=== PATIENT | female | born 1965 | race Caucasian/White ===

== ENCOUNTER 2017-03-31 16:13 | Emergency (ER) | payer OTHER ==
[2017-03-31] MEDS ORDERED: BACIGUENT PACKET TP ONE (16:44)
[2017-03-31] MEDS ORDERED: TYLENOL 325 MG PO ONE (16:44)
[2017-03-31] MEDS ORDERED: TYLENOL 325 MG ONE (16:50)
[2017-03-31] MEDS ORDERED: BACIGUENT PACKET ONE (16:50)
--- NOTE | 2017-03-31 16:51 | ERPHSYRPT ---
- History of Present Illness Time Seen by Provider: 03/31/17 16:37 Source: patient Exam Limitations: no limitations Patient Subjective Stated Complaint: patient states she is allergic to bee sting and something shes not sure what stung her today on her left hand and it hurts. Triage Nursing Assessment: pt is alert and orientedx3, lung sounds clear, pulses equal bialteral radius, cap refill immediate on left hand. unable to locate sting site, no swelling noted , skin clean dry and intact. patient gait is stead and ambulate by self without assistance. edema noted to bilateral lower extremities. Physician History: 51-year-old white female who states she is alert he would to bee stings states she was stung by unknown insect on her left fourth finger while working in the garden 30 minutes prior to arrival patient states that she took Benadryl. She is not having any shortness of breath no wheezing she is not swelling she does state that she has pain in her left fourth finger and left hand. Past medical history includes high blood pressure, asthma, diabetes, arthritis, fibromyalgia, osteoporosis, GERD, gallbladder disease Past surgical history includes cardiac catheter cholecystectomy tubal, knee surgery, tonsillectomy and adenoidectomy Timing/Duration: today Severity: mild Modifying Factors: Improves With: nothing Associated Symptoms: other (pain in left fourth finger and hand), No nausea, No vomiting, No abdominal pain, No shortness of breath, No heartburn, No diaphoresis, No cough, No chills, No chest pain, No fever, No headaches, No loss of appetite, No malaise, No rash, No syncope, No seizure, No weakness Allergies/Adverse Reactions: Sulfa (Sulfonamide Antibiotics) Allergy (Verified 09/11/14 20:41) nuclear dye Adverse Reaction (Intermediate, Uncoded 12/27/13 23:54) Nausea and Vomiting Home Medications: Aspirin 81 gm Chew [Baby Aspirin 81 mg Chew] 1 tab PO DAILY 09/12/14 [ History] Diphenhydramine HCl 25 mg [Benadryl 25 mg Capsule] 2 tablet PO HS [History] Ibuprofen 200 mg [Motrin 200 mg] 1 tab PO TID 09/12/14 [History] Simvastatin 1 tab PO DAILY 09/12/14 [History] Hx Tetanus, Diphtheria Vaccination/Date Given: Yes Hx Influenza Vaccination/Date Given: No Hx Pneumococcal Vaccination/Date Given: No Immunizations Up to Date: Yes - Review of Systems Constitutional: No Fever, No Chills Eyes: No Symptoms Ears, Nose, & Throat: No Symptoms Respiratory: No Cough, No Dyspnea Cardiac: No Chest Pain, No Edema, No Syncope Abdominal/Gastrointestinal: No Abdominal Pain, No Nausea, No Vomiting, No Diarrhea Genitourinary Symptoms: No Dysuria Musculoskeletal: Other (possible insect sting with pain left fourth finger and hand) Skin: No Rash Neurological: No Dizziness, No Focal Weakness, No Sensory Changes Psychological: No Symptoms Endocrine: No Symptoms All Other Systems: Reviewed and Negative - Past Medical History Pertinent Past Medical History: Yes Neurological History: No Pertinent History ENT History: Other Cardiac History: Hypertension Respiratory History: Asthma Endocrine Medical History: Diabetes Type II Musculoskeletal History: Arthritis, Fibromyalgia, Osteoporosis GI Medical History: GERD, Gallbladder Disease, Hemorrhoids History: No Pertinent History Psycho-Social History: No Pertinent History Female Reproductive Disorders: No Pertinent History Other Medical History: Freckle in eye,, possible CA - Past Surgical History Past Surgical History: Yes Neuro Surgical History: No Pertinent History Cardiac: Cardiac Catheterization Respiratory: No Pertinent History Gastrointestinal: Cholecystectomy Genitourinary: No Pertinent History Musculoskeletal: Other Female Surgical History: Tubal Ligation Other Surgical History: 3 surgeries on both knees, T&A - Social History Smoking Status: Never smoker Exposure to second hand smoke: No Drug Use: none Patient Lives Alone: Yes - Female History Hx Now: No - Nursing Vital Signs Nursing Vital Signs: Initial Vital Signs Temperature 98 F 03/31/17 16:13 Pulse Rate 77 03/31/17 16:13 Respiratory Rate 18 03/31/17 16:13 Blood Pressure 125/60 03/31/17 16:13 O2 Sat by Pulse Oximetry 98 03/31/17 16:13 Pain Scale Pain Intensity 8 - Physical Exam General Appearance: no apparent distress, alert Eye Exam: PERRL/EOMI, eyes nml inspection Ears, Nose, Throat Exam: normal ENT inspection, TMs normal, pharynx normal, moist mucous membranes Neck Exam: normal inspection, non-tender, supple, full range of motion Respiratory Exam: normal breath sounds, lungs clear, No respiratory distress Cardiovascular Exam: regular rate/rhythm, normal heart sounds, normal peripheral pulses Gastrointestinal/Abdomen Exam: soft, normal bowel sounds, No tenderness, No mass Back Exam: normal inspection, normal range of motion, No CVA tenderness, No vertebral tenderness Extremity Exam: normal inspection, normal range of motion, pelvis stable Neurologic Exam: alert, oriented x 3, cooperative, normal mood/affect, nml cerebellar function, nml station & gait, sensation nml, No motor deficits Skin Exam: other (small punctate area dorsal left fourth finger slightly erythematous no hives no swelling) Lymphatic Exam: No adenopathy SpO2 Interpretation: normal (98%) SpO2: 98 Oxygen Delivery: Room Air - Course Nursing assessment & vital signs reviewed: Yes Ordered Tests: Active Orders 24 hr Category Date Time Status Wound Care STAT Care 03/31/17 16:44 Active Medication Summary Discontinued Medications Generic Name Dose Route Start Last Admin Trade Name Freq PRN Reason Stop Dose Admin Acetaminophen 650 mg 03/31/17 16:44 Tylenol 325 Mg PO 03/31/17 16:45 STAT ONE Bacitracin 0.9 gm 03/31/17 16:44 Baciguent Packet TP 03/31/17 16:45 STAT ONE - Progress Progress: improved Progress Note: 03/31/17 16:47 51-year-old white female who states she is allergic to bee stings states she was stung by an unknown insect on her left fourth finger 30 minutes prior to arrival she has taken Benadryl she has no swelling no hives no shortness of breath she has a severely small punctate erythematous area on her left fourth finger. Will have nurse clean the area apply bacitracin Will give patient Tylenol here in the emergency room and write for 4 Franklin tablets. - Departure Time of Disposition: 16:48 Departure Disposition: Home Clinical Impression: Insect sting Qualifiers: Encounter type: sequela Injury intent: accidental or unintentional Qualified Code(s): T63.481S - Toxic effect of venom of other arthropod, accidental ( unintentional), sequela Condition: Fair Critical Care Time: No Referrals: REJI CONTRERAS MD [Primary Care Provider] - Additional Instructions: Return home. Benadryl 50 mg orally every 6 hours as needed for 2-3 days. Franklin 5/325 #4 one orally every 4-6 hours as needed for pain. Cool packs to area 24-48 hours. Follow-up with your family doctor or return if signs of infection or problems. Return for acute distress or for severe symptoms. Prescriptions: Hydrocodone Bit/Acetaminophen [Franklin 5/325Mg] 1 tab PO Q4-6HPRN PRN #4 tablet PRN Reason: Pain
[2017-03-31 17:19] VITALS: BP 112/47; PULSE 65; O2SAT 97
== END 2017-03-31 17:20 | disposition home or self-care (01) ==
LOC: ED 16:13
DX: T63.481A Toxic effect of venom of other arthropod, accidental (unintentional), initial encounter (principal)
CPT/HCPCS: 99283; A9270-GY

== ENCOUNTER 2017-04-20 17:38 | Observation (INO) | payer OTHER ==
[2017-04-20] MEDS ORDERED: BABY ASPIRIN 81 MG CHEW PO ONE (17:58)
[2017-04-20] MEDS ORDERED: NITRO-BID 2% UD PACKETS TOP ONE (17:58)
--- NOTE | 2017-04-20 18:02 | ERPHSYRPT ---
- History of Present Illness Time Seen by Provider: 04/20/17 17:51 Historian: patient Patient Subjective Stated Complaint: PT REPORTS CHEST PAIN FOR RIVAS 2 WKS- INTERMITTANT IN NATURE-STATES IT NEVER GOES AWAY BUT AT TIMES GETS WORSE-STATES SHE HAS PRODUCTIVE COUGH WITH LIGHT YELLOW SPUTUM-DENIES PAIN INCREASES WITH ACTIVITY Triage Nursing Assessment: PT PINK WARM ET [id number] NONLABORED-LUNGS DIMINISHED UPON ARRIVAL BUT PT ABLE TO SPEAK IN COMPLETE SENTENCES WITH EASE Physician History: CC: chest pain Hx: 51 y/o patient of Dr Do with hx of DM. She has some chest pains for two weeks, worse now feeling like heaviness with something sitting on her left chest. Some PIERCE. She came as the pain was worse. No hx of prior heart disease. Reports remote heart cath X 2 was ok. Mild cough. Some chills. No fever. No abd pain. Symptoms moderate but worse today. Severity of Pain-Max: moderate Severity of Pain-Current: moderate Nitro Today/Relief: no nitro taken today Aspirin Treatment Today: 81 mg x 4, provided by ED Allergies/Adverse Reactions: acetaminophen [From Percocet] Allergy (Intermediate, Verified 04/20/17 17:47) Blisters oxycodone [From Percocet] Allergy (Intermediate, Verified 04/20/17 17:47) Blisters sulfamethoxazole [From Bactrim] Allergy (Intermediate, Verified 04/20/17 17:47) Swelling trimethoprim [From Bactrim] Allergy (Intermediate, Verified 04/20/17 17:47) Swelling Sulfa (Sulfonamide Antibiotics) Allergy (Verified 04/20/17 17:47) Hives nuclear dye Adverse Reaction (Intermediate, Uncoded 04/20/17 17:47) Nausea and Vomiting Home Medications: Aspirin 81 gm Chew [Baby Aspirin 81 mg Chew] 1 tab PO DAILY 09/12/14 [ History] Simvastatin 1 tab PO DAILY 09/12/14 [History] Albuterol 2 mg/5 ml Syrup [Ventolin Syrup 2 mg/5 ml] 2 mg PO UD 04/20/17 [ History] Fenofibrate 160 mg PO DAILY 04/20/17 [History] Fluticasone/Salmeterol [Advair 250-50 Diskus] 2 puff IH UD 04/20/17 [History] Insulin Glargine,Hum.rec.anlog [Lisaaglmark [place] U-100] 74 unit SQ DAILY [History] Insulin Glulisine [Apidra] 120 unit SQ DAILY 04/20/17 [History] Hx Tetanus, Diphtheria Vaccination/Date Given: Yes Hx Influenza Vaccination/Date Given: No Hx Pneumococcal Vaccination/Date Given: No Immunizations Up to Date: Yes - Review of Systems Constitutional: Malaise, No Fever, No Chills Eyes: No Symptoms Ears, Nose, & Throat: No Symptoms Respiratory: Cough, Dyspnea on Exertion (PIERCE) Cardiac: Chest Pain, No Palpitations, No Syncope Abdominal/Gastrointestinal: No Abdominal Pain, No Nausea, No Vomiting Genitourinary Symptoms: Dysuria Skin: No Rash Neurological: No Headache All Other Systems: Reviewed and Negative - Past Medical History Pertinent Past Medical History: Yes Neurological History: No Pertinent History ENT History: Other Cardiac History: High Cholesterol, Hypertension Respiratory History: Asthma Endocrine Medical History: Diabetes Type II Musculoskeletal History: Arthritis, Fibromyalgia, Osteoporosis GI Medical History: GERD, Gallbladder Disease, Hemorrhoids History: No Pertinent History Psycho-Social History: No Pertinent History Female Reproductive Disorders: No Pertinent History Other Medical History: Retina freckle - Past Surgical History Past Surgical History: Yes Neuro Surgical History: No Pertinent History Cardiac: Cardiac Catheterization Respiratory: No Pertinent History Gastrointestinal: Cholecystectomy Genitourinary: No Pertinent History Musculoskeletal: Other Female Surgical History: Tubal Ligation Other Surgical History: 3 surgeries on both knees, T&A - Social History Smoking Status: Never smoker Exposure to second hand smoke: No Drug Use: none Patient Lives Alone: Yes - Female History Hx Now: No - Nursing Vital Signs Nursing Vital Signs: Initial Vital Signs Temperature 98.5 F 04/20/17 17:39 Pulse Rate 83 04/20/17 17:39 Respiratory Rate 20 04/20/17 17:39 Blood Pressure 131/66 04/20/17 17:39 O2 Sat by Pulse Oximetry 96 04/20/17 17:39 Pain Scale Pain Intensity 4 - Physical Exam General Appearance: alert, obese Eye Exam: PERRL/EOMI Ears, Nose, Throat Exam: normal ENT inspection Neck Exam: normal inspection, non-tender, supple Respiratory Exam: normal breath sounds Cardiovascular Exam: regular rate/rhythm, edema (trace legs symmetrical) Gastrointestinal/Abdomen Exam: soft, No tenderness, No distention Extremity Exam: normal inspection, normal range of motion Neurologic Exam: alert, oriented x 3, cooperative, sensation nml, No motor deficits Skin Exam: warm, dry, No rash SpO2 Interpretation: normal SpO2: 96 Oxygen Delivery: Room Air - Course Nursing assessment & vital signs reviewed: Yes EKG Interpreted by Me: RATE (68), Sinus Rhythm, NORMAL AXIS, NORMAL INTERVALS ( QTc 444), Q-wave (inferior), Non-specific ST Changes - Radiology Exams cxr X-ray Interpretation: Interpreted by me (CM, atelectasis, RLL infiltrate) Ordered Tests: Active Orders 24 hr Category Date Time Status Radiology Physician Assistant STAT Care 04/20/17 17:58 Active Clean Catch Urine Specimen STAT Care 04/20/17 18:03 Active EKG-ER Only STAT Care 04/20/17 17:58 Active IV Insertion STAT Care 04/20/17 17:58 Active Pulse Oximetry (ED) STAT Care 04/20/17 17:58 Active CHEST 1 VIEW (PORTABLE) Stat Exams 04/20/17 17:58 Taken CBC W DIFF Stat Lab 04/20/17 17:55 Completed CMP Stat Lab 04/20/17 17:55 Completed CULTURE,URINE Stat Lab 04/20/17 18:45 Received TROPONIN Q3H Lab 04/20/17 17:55 Completed TROPONIN Q3H Lab 04/20/17 21:00 Ordered TROPONIN Q3H Lab 04/21/17 00:00 Ordered TROPONIN Q3H Lab 04/21/17 03:00 Ordered TROPONIN Q3H Lab 04/21/17 06:00 Ordered UA W/ MICROSCOPIC Stat Lab 04/20/17 18:45 Completed Medication Summary Discontinued Medications Generic Name Dose Route Start Last Admin Trade Name Freq PRN Reason Stop Dose Admin Aspirin 324 mg 04/20/17 17:58 04/20/17 18:30 Baby Aspirin 81 Mg Chew PO 04/20/17 17:59 324 mg STAT ONE Administration Aspirin Confirm 04/20/17 18:04 Baby Aspirin 81 Mg Chew Administered 04/20/17 18:05 Dose 243 mg .ROUTE .STK-MED ONE Aspirin Confirm 04/20/17 18:34 Baby Aspirin 81 Mg Chew Administered 04/20/17 18:35 Dose 81 mg .ROUTE .STK-MED ONE Nitroglycerin 1 gm 04/20/17 17:58 04/20/17 18:30 Nitro-Bid 2% Ud Packets TOP 04/20/17 17:59 1 gm STAT ONE Administration Nitroglycerin Confirm 04/20/17 18:04 Nitro-Bid 2% Ud Packets Administered 04/20/17 18:05 Dose 1 gm .ROUTE .STK-MED ONE Lab/Rad Data: Laboratory Result Diagrams 04/20/17 17:55 04/20/17 17:55 Laboratory Results 04/20/17 04/20/17 04/20/17 Range/Units 18:45 17:55 17:55 WBC (4.0-10.5) K/mm3 RBC (4.1-5.4) M/mm3 Hgb (12.0-16.0) gm/dl Hct (35-47) % MCV (78-100) fl MCH (26-32) pg MCHC (32-36) g/dl RDW (11.5-14.0) % Plt Count (150-450) K/mm3 MPV (6-9.5) fl Gran % (36.0-66.0) % Lymphocytes % (24.0-44.0) % Monocytes % (0.0-12.0) % Eosinophils % (0.00-5.0) % Basophils % (0.0-0.4) % Basophils # (0-0.4) Sodium 141 (136-145) mEq/L Potassium 4.1 (3.5-5.1) mEq/L Chloride 105 (98-107) mEq/L Carbon Dioxide 24.9 (21-32) mEq/L Anion Gap 15.3 H (5-15) MEQ/L BUN 8 L (9-20) mg/dL Creatinine 0.92 (0.55-1.30) mg/dl Estimated GFR > 60 ML/MIN Glucose 260 H (70-110) MG/DL Calcium 8.9 (8.5-10.1) mg/dL Total Bilirubin 0.30 (0.2-1.0) mg/dL AST 16 (15-37) U/L ALT 31 (12-78) U/L Alkaline Phosphatase 122 H (46-116) U/L Troponin I < 0.017 (0.000-0.056) ng/ml Serum Total Protein 7.3 (6.4-8.2) gm/dL Albumin 3.4 (3.4-5.0) g/dL Ur Collection Type CLEAN CATCH Urine Color YELLOW (YELLOW) Urine Appearance CLOUDY (CLEAR) Urine pH 5.5 (5-6) Ur Specific [place] 1.020 (1.005-1.025) Urine Protein NEGATIVE (Negative) Urine Ketones NEGATIVE (NEGATIVE) Urine Blood 50 (0-5) Dada/ul Urine Nitrite POSITIVE (NEGATIVE) Urine Bilirubin NEGATIVE (NEGATIVE) Urine Urobilinogen NORMAL (0-1) mg/dL Ur Leukocyte Esterase 2+ (NEGATIVE) Urine Microscopic RBC 0-2 (0-2) /HPF Urine Microscopic WBC 25-50 (0-5) /HPF Ur Epithelial Cells FEW (FEW) /HPF Urine Bacteria PACKED (NEGATIVE) /HPF Urine Glucose 50 (NEGATIVE) mg/dL Specimen Received 04/20/17:1845 04/20/17 Range/Units 17:55 WBC 9.6 (4.0-10.5) K/mm3 RBC 4.70 (4.1-5.4) M/mm3 Hgb 13.9 (12.0-16.0) gm/dl Hct 40.9 (35-47) % MCV 87.0 (78-100) fl MCH 29.6 (26-32) pg MCHC 34.0 (32-36) g/dl RDW 13.9 (11.5-14.0) % Plt Count 208 (150-450) K/mm3 MPV 12.5 H (6-9.5) fl Gran % 49.0 (36.0-66.0) % Lymphocytes % 43.0 (24.0-44.0) % Monocytes % 6.7 (0.0-12.0) % Eosinophils % 1.1 (0.00-5.0) % Basophils % 0.2 (0.0-0.4) % Basophils # 0.02 (0-0.4) Sodium (136-145) mEq/L Potassium (3.5-5.1) mEq/L Chloride (98-107) mEq/L Carbon Dioxide (21-32) mEq/L Anion Gap (5-15) MEQ/L BUN (9-20) mg/dL Creatinine (0.55-1.30) mg/dl Estimated GFR ML/MIN Glucose (70-110) MG/DL Calcium (8.5-10.1) mg/dL Total Bilirubin (0.2-1.0) mg/dL AST (15-37) U/L ALT (12-78) U/L Alkaline Phosphatase (46-116) U/L Troponin I (0.000-0.056) ng/ml Serum Total Protein (6.4-8.2) gm/dL Albumin (3.4-5.0) g/dL Ur Collection Type Urine Color (YELLOW) Urine Appearance (CLEAR) Urine pH (5-6) Ur Specific [place] (1.005-1.025) Urine Protein (Negative) Urine Ketones (NEGATIVE) Urine Blood (0-5) Dada/ul Urine Nitrite (NEGATIVE) Urine Bilirubin (NEGATIVE) Urine Urobilinogen (0-1) mg/dL Ur Leukocyte Esterase (NEGATIVE) Urine Microscopic RBC (0-2) /HPF Urine Microscopic WBC (0-5) /HPF Ur Epithelial Cells (FEW) /HPF Urine Bacteria (NEGATIVE) /HPF Urine Glucose (NEGATIVE) mg/dL Specimen Received - Progress Progress Note: 04/20/17 19:15 Pain improved with NTG paste. She has UTI. Possible RLL pneumonia. Called Dr Mandujano for [place] for chest pain obs. Will treat infections with abtx. Counseled pt/family regarding: lab results, diagnosis, need for follow-up, rad results - Departure Time of Disposition: 19:17 Departure Disposition: Observation (Tele) Clinical Impression: UTI (lower urinary tract infection), Type 2 diabetes mellitus, Chest pain, rule out acute myocardial infarction, RLL pneumonia Condition: Stable Critical Care Time: No Referrals: REJI DO MD [Primary Care Provider] -
[2017-04-20] MEDS ORDERED: NITRO-BID 2% UD PACKETS ONE (18:04)
[2017-04-20] MEDS ORDERED: BABY ASPIRIN 81 MG CHEW ONE ×2 (18:04→18:34)
[2017-04-20 18:10] LABS: BASOPHIL % 0.2 % (0.0-0.4); Eosinophil % 1.1 % (0.00-5.0); Mean Corpuscular Hemoglobin 29.6 pg (26-32); Mean Platelet Volume 12.5 fl (6-9.5); Monocytes % 6.7 % (0.0-12.0); Platelet Count 208 K/mm3 (150-450); Red Cell Distribution Width 13.9 % (11.5-14.0); White Blood Count 9.6 K/mm3 (4.0-10.5)
[2017-04-20 18:28] LABS: ALBUMIN 3.4 g/dL (3.4-5.0); ALKALINE PHOSPHATASE 122 U/L (46-116); ANION GAP 15.3 MEQ/L (5-15); BLOOD UREA NITROGEN 8 mg/dL (9-20); CHLORIDE 105 mEq/L (98-107); Carbon Dioxide 24.9 mEq/L (21-32); Glucose 260 MG/DL (70-110); Potassium 4.1 mEq/L (3.5-5.1); SGOT/AST 16 U/L (15-37); SGPT/ALT 31 U/L (12-78); SODIUM 141 mEq/L (136-145); Total Protein 7.3 gm/dL (6.4-8.2)
[2017-04-20 19:11] LABS: ADD URINE CULTURE? YES (NO); Bilirubin NEGATIVE (NEGATIVE); Blood 50 Ery/ul (0-5); COMPLETE URINE MICROSCOPIC? YES; Collection Type CLEAN CATCH; Glucose 50 mg/dL (NEGATIVE); Leukocyte Esterase 2+ (NEGATIVE)
[2017-04-20 19:12] LABS: Bacteria PACKED /HPF (NEGATIVE); Epithelial Cells FEW /HPF (FEW); WBC 25-50 /HPF (0-5)
[2017-04-20] MEDS ORDERED: LEVOFLOXACIN 750MG/150ML D5W 750 MG/150 ML BAG IV STA (19:19)
[2017-04-20] MEDS ORDERED: LEVOFLOXACIN 750MG/150ML D5W 750 MG/150 ML BAG IV ONE (19:34)
[2017-04-20] MEDS ORDERED: Sodium Chloride 0.9% 1000 ML 1,000 ML ONE (19:42)
[2017-04-20] MEDS ORDERED: Sodium Chloride 0.9% 1000 ML 1,000 ML IV STA ×2 (19:44→20:20)
[2017-04-20] MEDS ORDERED: Sodium Chloride 0.9% 1000 ML 1,000 ML IV SCH (20:20)
[2017-04-20] MEDS ORDERED: TYLENOL 325 MG PO PRN (20:20)
--- NOTE | 2017-04-20 20:59 | XRAY ---
Indication: Chest pain. Comparison: September 25, 2012. Portable chest demonstrates new subtle right base infiltrate versus atelectasis. Remaining heart and lungs unremarkable. Bony thorax intact with mild degenerative changes.
[2017-04-20] MEDS: NITRO-BID 2% UD PACKETS TOP SCH (22:45)
[2017-04-20] MEDS: NovoLOG Insulin SQ PRN (22:53)
[2017-04-21] MEDS: BENADRYL 25 MG CAPSULE PO PRN ×2 (00:17→23:21)
[2017-04-21] MEDS: NITRO-BID 2% UD PACKETS TOP SCH ×3 (06:15→21:46)
[2017-04-21] MEDS ORDERED: FLUCELVAX QUAD 2017-2018 SYR IM ONE (10:00)
[2017-04-21] MEDS: NovoLOG Insulin SQ PRN ×3 (11:23→22:05)
[2017-04-21] MEDS ORDERED: VENTOLIN PO PRN (13:46)
[2017-04-21] MEDS: Tricor 145 MG PO SCH (13:58)
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
[2017-04-21] MEDS: ENOXAPARIN SODIUM SQ SCH (16:31)
[2017-04-21] MEDS: VOLTAREN 50 MG PO SCH (16:39)
[2017-04-21] MEDS ORDERED: Lantus Insulin SQ SCH (18:00)
[2017-04-21] MEDS: Advair Hfa 115/21 Common canister IH SCH (20:42)
[2017-04-21] MEDS ORDERED: ZOCOR 20MG PO SCH (22:00)
[2017-04-21] MEDS ORDERED: LEVOFLOXACIN 750MG/150ML D5W 750 MG/150 ML BAG IV SCH (22:00)
[2017-04-22] MEDS: NITRO-BID 2% UD PACKETS TOP SCH (06:27)
[2017-04-22] MEDS: Advair Hfa 115/21 Common canister IH SCH (07:30)
--- NOTE | 2017-04-22 08:21 | PCM.DS ---
Discharge Summary Date of Admission: 04/20/17 19:56 Admitting Physician: REJI CONTRERAS Primary Care Provider: REJI CONTRERAS Allergies Allergies acetaminophen [From Percocet] Allergy (Intermediate, Verified 04/20/17 20:26) Blisters oxycodone [From Percocet] Allergy (Intermediate, Verified 04/20/17 20:26) Blisters sulfamethoxazole [From Bactrim] Allergy (Intermediate, Verified 04/20/17 20:26) Swelling trimethoprim [From Bactrim] Allergy (Intermediate, Verified 04/20/17 20:26) Swelling Sulfa (Sulfonamide Antibiotics) Allergy (Verified 04/20/17 20:26) Hives nuclear dye Adverse Reaction (Intermediate, Uncoded 04/20/17 17:47) Nausea and Vomiting Hospital Summary - Hospital Course Hospital Course: patient was admitted with chest pain, had chills. was found to have a pneumonia and UTI, doing much better since admission. she insists she wants to go home, has been afebrile, white count normal and sats are normal on room air - Vitals & Intake/Output Vital Signs: Vital Signs Temperature 97.8 F 04/22/17 07:19 Pulse Rate 67 04/22/17 07:19 Respiratory Rate 20 04/22/17 07:19 Blood Pressure 125/59 04/22/17 07:19 O2 Sat by Pulse Oximetry 97 04/22/17 07:19 Intake & Output: Intake & Output 04/19/17 04/20/17 04/21/17 04/22/17 11:59 11:59 11:59 11:59 Intake Total 1528 3725 Output Total 900 4000 Balance 628 -275 Weight 96.252 kg - Lab Result Diagrams: 04/20/17 17:55 04/20/17 17:55 Lab Results-Last 24 Hrs: Accuchecks Date 04/21/17 Date 04/21/17 Date 04/21/17 Time 21:00 Time 16:30 Time 11:31 Accucheck Value: 134 Accucheck Value: 260 Accucheck Value: 203 Accucheck Value: 224 Lab Results-Last 24 Hours 04/21/17 Range/Units 06:30 Hemoglobin A1c 8.1 H (4.5-6.2) Micro Results-Entire Visit: Accuchecks Date 04/21/17 Date 04/21/17 Date 04/21/17 Time 21:00 Time 16:30 Time 11:31 Accucheck Value: 134 Accucheck Value: 260 Accucheck Value: 203 Accucheck Value: 224 - Procedures and Test Procedures and Tests throughout Hospitalization: Therapy Orders & Screens 04/21/17 07:00 Respiratory MDI BID Comment: Diagnosis: UTI Discharge Exam General Appearance: no apparent distress, alert Skin Exam: normal color, warm, dry Respiratory Exam: normal breath sounds, lungs clear, No respiratory distress Cardiovascular Exam: regular rate/rhythm, normal heart sounds Gastrointestinal/Abdomen Exam: soft, No tenderness, No mass Extremity Exam: normal inspection, normal range of motion Final Diagnosis/Problem List - Final Discharge Diagnosis/Problem (1) Chest pain, rule out acute myocardial infarction Current Visit: Yes Status: Acute Assessment & Plan: WA ruled out, likely pleuritic and related to pneumonia (2) RLL pneumonia Current Visit: Yes Status: Acute Assessment & Plan: home on po levaquin (3) Type 2 diabetes mellitus Current Visit: Yes Status: Acute (4) UTI (lower urinary tract infection) Current Visit: Yes Status: Acute Assessment & Plan: continue levaquin, await culture results - Discharge Disposition: Home, Self-Care Condition: Stable Prescriptions: New Levofloxacin [Levaquin] 750 mg PO DAILY #4 tablet Continue Simvastatin 80 mg PO DAILY Aspirin 81 gm Chew [Baby Aspirin 81 mg Chew] 1 tab PO DAILY Albuterol 2 mg/5 ml Syrup [Ventolin Syrup 2 mg/5 ml] 2 mg PO Q4H PRN PRN PRN Reason: Shortness Of Breath Insulin Glulisine [Apidra] 120 unit SQ DAILY Fenofibrate 160 mg PO DAILY Fluticasone/Salmeterol [Advair 250-50 Diskus] 2 puff IH BID Insulin Glargine,Hum.rec.anlog [Basaglar Kwikpen U-100] 80 unit SQ HS Diclofenac Sodium 75 mg PO BIDAC Diphenhydramine HCl [Benadryl] 100 mg PO QHS Additional Instructions: continue levaquin, push fluids. use albuterol at home as needed. f/u with Dr Contreras in a week Follow up with: REJI CONTRERSA MD [Primary Care Provider] - Forms: Patient Portal Information
[2017-04-22 08:28] VITALS: O2SAT 95
[2017-04-22] MEDS: VOLTAREN 50 MG PO SCH (08:30)
[2017-04-22] MEDS: ENOXAPARIN SODIUM SQ SCH (09:32)
[2017-04-22] MEDS: Tricor 145 MG PO SCH (09:32)
[2017-04-22] MEDS ORDERED: NON-FORMULARY ITEM (Fenofibrate [Fenofibrate] 160 MG) PO SCH (10:00)
[2017-04-22] MEDS ORDERED: BABY ASPIRIN 81 MG CHEW PO SCH (10:00)
[2017-04-22] MEDS ORDERED: ECOTRIN 81 MG PO SCH (10:00)
[2017-04-22 12:13] VITALS: BP 128/67; PULSE 68
[2017-04-22] MEDS: NovoLOG Insulin SQ PRN (12:28)
== END 2017-04-22 12:45 | disposition home or self-care (01) ==
LOC: ED 17:38 → EEVIPCON 19:56 → MED SURG 19:56
PROVIDERS: ADMIT Family Medicine; ATTEND Family Medicine
DX: R07.9 Chest pain, unspecified (principal); J18.1 Lobar pneumonia, unspecified organism; E11.9 Type 2 diabetes mellitus without complications; N39.0 Urinary tract infection, site not specified; M19.90 Unspecified osteoarthritis, unspecified site; F41.9 Anxiety disorder, unspecified; Z79.899 Other long term (current) drug therapy; Z72.0 Tobacco use
CPT/HCPCS: 36000; 36415; 71010; 80053; 81000; 82962; 83036; 83605; 84484; 85025; 87040; 87077; 87086; 87186; 93005; 93041; 93268; 94640; 94760; 96360; 96365; 99285; G0008; G0378; J1650; J1956; 90682; A9270-GY

== ENCOUNTER 2024-05-01 09:45 | Emergency (ER) | payer SELFPAY ==
--- NOTE | 2024-05-01 09:51 | ERPHSYRPT ---
- History of Present Illness Time Seen by Provider: 05/01/24 09:51 Historian: patient, EMS, old records Exam Limitations: no limitations Physician History: This is a morbidly obese white female patient brought into the emergency department by the paramedics secondary to right-sided chest pain that has been present for approximately 2 days intermittently. She describes the pain as right-sided achiness without radiation. Patient is concerned about possible myocardial infarction. Patient also complains of right calf pain. Patient states that she has been off her anticoagulation therapy for 1 month. She has had a right calf DVT in the past. The paramedics provided her with 324 mg of baby aspirin en route to our facility. Patient has a history of coronary artery disease (CABG), hyperlipidemia and insulin-dependent diabetes. Patient is not short of breath. Patient recently moved back to the area and does not have a isotope technician at this time. Timing/Duration: day(s) (2) Quality: aching Location: other Chest Pain Radiation: no radiation (Right anterior chest) Severity of Pain-Max: moderate Severity of Pain-Current: mild Modifying Factors: Improves With: nothing Associated Symptoms: other (Right calf pain), No abdominal pain, No shortness of breath, No cough, No diaphoresis Prior Chest Pain/Cardiac Workup: cardiac cath, echocardiography, heart attack Nitro Today/Relief: no nitro taken today Aspirin Treatment Today: 81 mg x 4, provided by EMS Allergies/Adverse Reactions: acetaminophen [From Percocet] Allergy (Intermediate, Verified 05/01/24 09:55) Blisters oxycodone [From Percocet] Allergy (Intermediate, Verified 05/01/24 09:55) Blisters sulfamethoxazole [From Bactrim] Allergy (Intermediate, Verified 05/01/24 09:55) Swelling trimethoprim [From Bactrim] Allergy (Intermediate, Verified 05/01/24 09:55) Swelling Sulfa (Sulfonamide Antibiotics) Allergy (Verified 05/01/24 09:55) Hives nuclear dye Adverse Reaction (Intermediate, Uncoded 05/01/24 09:55) Nausea and Vomiting Home Medications: Aspirin 81 gm Chew [Baby Aspirin 81 mg Chew] 1 tab PO DAILY 09/12/14 [History] Simvastatin 80 mg PO DAILY 09/12/14 [History] Albuterol 2 mg/5 ml Syrup [Ventolin Syrup 2 mg/5 ml] 2 mg PO Q4H PRN PRN 04/20/17 [History] Diclofenac Sodium 75 mg PO BIDAC 04/20/17 [History] Fenofibrate 160 mg PO DAILY 04/20/17 [History] Fluticasone/Salmeterol [Advair 250-50 Diskus] 2 puff IH BID 04/20/17 [History] Insulin Glargine,Hum.rec.anlog [Basaglar Kwikpen U-100] 80 unit SQ HS 04/20/17 [History] Insulin Glulisine [Apidra] 120 unit SQ DAILY 04/20/17 [History] diphenhydrAMINE HCL [Benadryl] 100 mg PO QHS 04/20/17 [History] Hx Tetanus, Diphtheria Vaccination/Date Given: Yes Hx Influenza Vaccination/Date Given: No Hx Pneumococcal Vaccination/Date Given: No Travel Risk - International Travel Have you traveled outside of the country in past 3 weeks: No - Emerging Infectious Disease Are you exhibiting symptoms associated with any current EIDs: No - Review of Systems Constitutional: No Symptoms Eyes: No Symptoms Ears, Nose, & Throat: No Symptoms Respiratory: No Symptoms Cardiac: Chest Pain (Right anterior chest achiness) Abdominal/Gastrointestinal: No Symptoms Genitourinary Symptoms: No Symptoms Musculoskeletal: Other (Right calf pain) Skin: No Symptoms Neurological: No Symptoms Psychological: No Symptoms Endocrine: No Symptoms Hematologic/Lymphatic: No Symptoms Immunological/Allergic: No Symptoms All Other Systems: Reviewed and Negative - Past Medical History Pertinent Past Medical History: Yes Neurological History: Migraines ENT History: Cataracts Cardiac History: No Pertinent History Respiratory History: No Pertinent History Endocrine Medical History: Diabetes Type II Musculoskeletal History: Arthritis GI Medical History: No Pertinent History History: No Pertinent History Psycho-Social History: Anxiety Female Reproductive Disorders: No Pertinent History Other Medical History: Retina debra - Past Surgical History Past Surgical History: Yes Neuro Surgical History: No Pertinent History Cardiac: Cardiac Catheterization Respiratory: No Pertinent History Gastrointestinal: Cholecystectomy Genitourinary: No Pertinent History Musculoskeletal: Orthopedic Surgery Female Surgical History: Tubal Ligation Other Surgical History: bilateral knee surgeries - Social History Smoking Status: Former smoker Exposure to second hand smoke: Yes Drug Use: none Patient Lives Alone: Yes - Nursing Vital Signs Nursing Vital Signs: Initial Vital Signs O2 Sat by Pulse Oximetry 96 05/01/24 09:58 Pain Scale Pain Intensity 0 - Physical Exam General Appearance: no apparent distress, alert, anxiety Eye Exam: PERRL/EOMI, eyes nml inspection Ears, Nose, Throat Exam: normal ENT inspection, moist mucous membranes Neck Exam: normal inspection, non-tender, supple, full range of motion Respiratory Exam: normal breath sounds, chest tenderness, lungs clear, airway intact, No respiratory distress Cardiovascular Exam: regular rate/rhythm, normal heart sounds, normal peripheral pulses Gastrointestinal/Abdomen Exam: soft, normal bowel sounds, No tenderness Pelvic Exam: deferred Rectal Exam: not done Back Exam: normal inspection, normal range of motion, No CVA tenderness, No vertebral tenderness Extremity Exam: normal inspection, normal range of motion, pelvis stable Neurologic Exam: alert, oriented x 3, cooperative, diet supervisor II-XII nml as tested, nml cerebellar function, nml station & gait, sensation nml Skin Exam: normal color, warm, dry Lymphatic Exam: No adenopathy SpO2 Interpretation: normal O2 Delivery: Room Air - Course Nursing assessment & vital signs reviewed: Yes EKG Interpreted by Me: RATE (78), Sinus Rhythm, NORMAL AXIS, NORMAL INTERVALS, NORMAL QRS, Other (No acute ischemic changes on today's twelve-lead EKG.) Ordered Tests: Active Orders 24 hr Category Date Time Status Line Service Technician STAT Care 05/01/24 09:55 Active EKG-ER Only STAT Care 05/01/24 09:55 Active IV Insertion STAT Care 05/01/24 09:55 Active Pulse Oximetry (ED) STAT Care 05/01/24 09:55 Active Re-Check Vital Signs STAT Care 05/01/24 09:55 Active ACO SDOH Referral ONCE Cons 05/01/24 10:12 Active CHEST WITH CONTRAST [CT] Stat Exams 05/01/24 13:02 Completed VENOUS UNILAT/LIMITED EXTREMIT [US] Stat Exams 05/01/24 10:34 Completed CBC W DIFF Stat Lab 05/01/24 10:05 Completed CMP Stat Lab 05/01/24 10:05 Completed D-DIMER QUANTITATIVE Stat Lab 05/01/24 10:34 Completed MAGNESIUM Stat Lab 05/01/24 10:05 Completed NT PRO BNPII Stat Lab 05/01/24 10:05 Completed TROPONIN Q4H Lab 05/01/24 10:05 Completed TROPONIN Q4H Lab 05/01/24 14:25 Completed TROPONIN Q4H Lab 05/01/24 18:00 Ordered Medication Summary Generic Name Dose Route Start Last Admin Trade Name Michael PRN Reason Stop Dose Admin Sodium Chloride 500 mls @ 100 mls/hr 05/01/24 11:15 05/01/24 12:09 Sodium Chloride 0.9% 500 Ml IV 05/31/24 11:14 100 mls/hr .Q5H ALLA Administration Discontinued Medications Generic Name Dose Route Start Last Admin Trade Name Michael PRN Reason Stop Dose Admin Methylprednisolone Sodium 0 mg 05/01/24 11:46 05/01/24 12:09 Succinate 125 mg/ Sterile IV 05/01/24 11:47 125 mg Water 2 ml STAT ONE Administration Diphenhydramine HCl 50 mg 05/01/24 11:46 05/01/24 12:09 Diphenhydramine Hcl 50 Mg/Ml Vial IV 05/01/24 11:47 50 mg STAT ONE Administration Diphenhydramine HCl Confirm 05/01/24 12:05 Diphenhydramine Hcl 50 Mg/Ml Vial Administered 05/01/24 12:06 Dose 50 mg .ROUTE .STK-MED ONE Magnesium Oxide 400 mg 05/01/24 13:05 05/01/24 13:13 Magnesium Oxide 400 Mg Tablet PO 05/01/24 13:06 400 mg STAT ONE Administration Magnesium Oxide Confirm 05/01/24 13:12 Magnesium Oxide 400 Mg Tablet Administered 05/01/24 13:13 Dose 400 mg .ROUTE .STK-MED ONE Methylprednisolone Sodium Succinate Confirm 05/01/24 12:05 Methylprednis Sod Succ 125 Mg/2 Ml Vial Administered 05/01/24 12:06 Dose 125 mg .ROUTE .STK-MED ONE Sterile Water Confirm 05/01/24 12:05 Water For Injection,Sterile 10 Ml Vial Administered 05/01/24 12:06 Dose 10 ml IJ .STK-MED ONE Lab/Rad Data: Laboratory Result Diagrams 05/01/24 10:05 05/01/24 10:05 Laboratory Results 05/01/24 05/01/24 05/01/24 Range/Units 14:25 10:34 10:05 WBC (3.98-10.04) x10^3/uL RBC (3.93-5.22) x10^6/uL Hgb (11.2-15.7) g/dL Hct (34.1-44.9) % MCV (79.4-94.8) fL MCH (25.6-32.2) pg MCHC (32.2-35.5) g/dL RDW (11.7-14.4) % Plt Count (182-369) x10^3/uL MPV (9.4-12.3) fL Gran % (34.0-71.1) % Immature Gran % (Auto) (0.001-0.429) % Nucleat RBC Rel Count (0.00-0.2) % Eos # (Auto) (0.04-0.36) x10^3/uL Immature Gran # (Auto) (0.001-0.031) x10^3u/L Absolute Lymphs (auto) (1.18-3.74) x10^3/uL Absolute Monos (auto) (0.24-0.86) x10^3/uL Absolute Nucleated RBC (0.00-0.012) x10^3u/L Lymphocytes % (19.3-51.7) % Monocytes % (4.7-12.5) % Eosinophils % (0.7-5.8) % Basophils % (0.1-1.2) % Absolute Granulocytes (1.56-6.13) x10^3/uL Basophils # (0.01-0.08) x10^3/uL D-Dimer 1.10 H* (0.0-0.50) mg/L Sodium (135-145) mmol/L Potassium (3.5-5.1) mmol/L Chloride (98-107) mmol/L Carbon Dioxide (22-30) mmol/L Anion Gap (5-15) MEQ/L BUN (7-17) mg/dL Creatinine (0.52-1.04) mg/dL Estimated GFR ML/MIN Glucose (74-106) mg/dL Calcium (8.4-10.2) mg/dL Magnesium (1.6-2.3) mg/dL Total Bilirubin (0.2-1.3) mg/dL AST (14-36) U/L ALT (0-35) U/L Alkaline Phosphatase (38-126) U/L Troponin I < 0.012 < 0.012 (0.000-0.033) ng/mL NT-Pro-B Natriuret Pep 117 (<300) pg/mL Serum Total Protein (6.3-8.2) g/dL Albumin (3.5-5.0) g/dL 05/01/24 05/01/24 Range/Units 10:05 10:05 WBC 9.8 (3.98-10.04) x10^3/uL RBC 4.80 (3.93-5.22) x10^6/uL Hgb 12.6 (11.2-15.7) g/dL Hct 38.3 (34.1-44.9) % MCV 79.8 (79.4-94.8) fL MCH 26.3 (25.6-32.2) pg MCHC 32.9 (32.2-35.5) g/dL RDW 13.9 (11.7-14.4) % Plt Count 257 (182-369) x10^3/uL MPV 11.1 (9.4-12.3) fL Gran % 44.1 (34.0-71.1) % Immature Gran % (Auto) 0.4 (0.001-0.429) % Nucleat RBC Rel Count 0.0 (0.00-0.2) % Eos # (Auto) 0.08 (0.04-0.36) x10^3/uL Immature Gran # (Auto) 0.04 H (0.001-0.031) x10^3u/L Absolute Lymphs (auto) 4.61 H (1.18-3.74) x10^3/uL Absolute Monos (auto) 0.68 (0.24-0.86) x10^3/uL Absolute Nucleated RBC 0.00 (0.00-0.012) x10^3u/L Lymphocytes % 47.1 (19.3-51.7) % Monocytes % 7.0 (4.7-12.5) % Eosinophils % 0.8 (0.7-5.8) % Basophils % 0.6 (0.1-1.2) % Absolute Granulocytes 4.31 (1.56-6.13) x10^3/uL Basophils # 0.06 (0.01-0.08) x10^3/uL D-Dimer (0.0-0.50) mg/L Sodium 136 (135-145) mmol/L Potassium 4.2 (3.5-5.1) mmol/L Chloride 104 (98-107) mmol/L Carbon Dioxide 19 L (22-30) mmol/L Anion Gap 17.1 H (5-15) MEQ/L BUN 19 H (7-17) mg/dL Creatinine 0.62 (0.52-1.04) mg/dL Estimated GFR 101.9 ML/MIN Glucose 320 H (74-106) mg/dL Calcium 9.0 (8.4-10.2) mg/dL Magnesium 1.5 L (1.6-2.3) mg/dL Total Bilirubin 0.30 (0.2-1.3) mg/dL AST 25 (14-36) U/L ALT 30 (0-35) U/L Alkaline Phosphatase 116 (38-126) U/L Troponin I (0.000-0.033) ng/mL NT-Pro-B Natriuret Pep (<300) pg/mL Serum Total Protein 7.4 (6.3-8.2) g/dL Albumin 4.2 (3.5-5.0) g/dL - Progress Progress: improved, re-examined Air Movement: good Progress Note: 05/01/24 13:02 My medical decision making and the assignment of moderate complexity to this patient's medical issue today is based on review of the patient's past medical history, review of the patient's medication list, reviewed patient drug allergy list, history present illness and physical findings on examination. The workup in this patient includes twelve-lead EKG, CBC, CMP, magnesium level, troponin level, D-dimer level, venous Doppler of the left lower extremity and CT scan of the chest with contrast. Differential diagnosis includes but is not limited to myocardial infarction, electrolyte abnormalities, arrhythmias, pneumonia, pulmonary embolus, DVT 05/01/24 13:03 The radiologist interpreted the venous Doppler of the right lower extremity. The impression states negative venous Doppler for DVT right lower extremity. 05/01/24 14:27 Patient reexamined. Patient's chest pain has resolved. The CT scan of the chest with contrast is negative for pulmonary embolus. There are no acute cardiopulmonary abnormalities. This study was interpreted by the radiologist and I reviewed the impression. I discussed this with the patient as well. 05/01/24 14:55 The second twelve-lead EKG was interpreted by me. It was performed on 05/01/2024 at 1451. Heart rate is 81 bpm. It is normal sinus rhythm. Normal axis deviation, normal QRS and normal intervals. No acute ischemia on today's twelve-lead EKG. QTc is 473. No change from the prior twelve-lead EKG. The repeat troponin level at 4 hours is normal. Patient is free of chest pain. Blood Culture(s) Obtained: Yes Antibiotics given: Yes Counseled pt/family regarding: lab results, diagnosis, rad results Medical Desision Making - Independent Historian Additional History obtained from: EMS - Diagnostic Testing Diagnostic test were ordered, analyzed, and reviewed by me: Yes Radiological Interpretation: Reviewed by me, Teleradiologist Report - Risk of complications Low Risk: Low risk of morbidity from additional dx testing or treatment - Departure Departure Disposition: Home Clinical Impression: Nonspecific chest pain, Right calf pain Condition: Stable Critical Care Time: No Referrals: REJI CONTRERAS MD [Primary Care Provider] - Follow up/PCP as directed Additional Instructions: Take all your medications as prescribed. Call your primary care provider today, 05/01/2024, to make arranges for follow-up appointment to be seen in the next 3 days. Return to the emergency department if symptoms recur
[2024-05-01 10:00] VITALS: TEMP 97
[2024-05-01 10:29] LABS: ALBUMIN 4.2 g/dL (3.5-5.0); ANION GAP 17.1 MEQ/L (5-15); BILIRUBIN,TOTAL 0.3 mg/dL (0.2-1.3); Creatinine 1 0.62 mg/dL (0.52-1.04); EST GLOMERULAR FILTRATION RATE 101.9 ML/MIN; MAGNESIUM 1.5 mg/dL (1.6-2.3); Potassium 4.2 mmol/L (3.5-5.1); Total Protein 7.4 g/dL (6.3-8.2)
[2024-05-01 10:43] LABS: Absolute Neutrophil Ct (ANC) 4.31 x10^3/uL (1.56-6.13); BASOPHIL % 0.6 % (0.1-1.2); Basophil (Absolute #) 0.06 x10^3/uL (0.01-0.08); Eosinophil % 0.8 % (0.7-5.8); Eosinophil (Absolute #) 0.08 x10^3/uL (0.04-0.36); Hematocrit 38.3 % (34.1-44.9); Hemoglobin 12.6 g/dL (11.2-15.7); IMMATURE GRAN # 0.04 x10^3u/L (0.001-0.031); IMMATURE GRAN % 0.4 % (0.001-0.429); Lymphocyte (Absolute #) 4.61 x10^3/uL (1.18-3.74); Lymphocytes % 47.1 % (19.3-51.7); Mean Cell Volume 79.8 fL (79.4-94.8); Mean Corpuscular Hemoglobin 26.3 pg (25.6-32.2); Mean Corpuscular Hgb Concent. 32.9 g/dL (32.2-35.5); Mean Platelet Volume 11.1 fL (9.4-12.3); Monocyte (Absolute #) 0.68 x10^3/uL (0.24-0.86); Neutrophil % 44.1 % (34.0-71.1); Platelet Count 257 x10^3/uL (182-369); Red Cell Distribution Width 13.9 % (11.7-14.4); White Blood Count 9.8 x10^3/uL (3.98-10.04)
[2024-05-01 10:47] LABS: NT PRO BNPII 117 pg/mL (<300); TROPONIN < 0.012 ng/mL (0.000-0.033)
--- NOTE | 2024-05-01 11:51 | XRAY ---
Indication: Calf pain. Two-dimensional sonogram and color Doppler imaging major venous vessels right leg performed. Comparison: None No thrombus seen in examined deep venous vessels right leg including greater saphenous vein. Veins demonstrate normal compressibility. Venous waveforms are normal with and without augmentation. Impression: Right leg negative for DVT.
[2024-05-01] MEDS ORDERED: BENADRYL 50 MG/ML ONE (12:05)
[2024-05-01] MEDS ORDERED: Sterile H2O 10 ml IJ ONE (12:05)
[2024-05-01] MEDS ORDERED: Sodium Chloride 0.9% 500 ML 500 ML IV ONE (12:05)
[2024-05-01] MEDS ORDERED: solu-MEDROL ONE (12:05)
[2024-05-01] MEDS: Sodium Chloride 0.9% 500 ML 500 ML IV SCH (12:09)
[2024-05-01] MEDS: BENADRYL 50 MG/ML IV ONE (12:09)
[2024-05-01] MEDS: solu-MEDROL 125 MG, Sterile H2O 10 ml 2 ML IV ONE (12:09)
[2024-05-01] MEDS ORDERED: MAG-OX 400 ONE (13:12)
[2024-05-01] MEDS: MAG-OX 400 PO ONE (13:13)
--- NOTE | 2024-05-01 14:23 | XRAY ---
Indication: Elevated d-dimer. Multiple contiguous axial images obtained through the chest using 60 cc Isovue 370 contrast and PE protocol. Comparison: None Good opacification pulmonary arteries to include the lobar and segmental branches. No pulmonary embolus. Heart not enlarged with CABG. Aorta is normal in course and caliber with minimal scattered calcifications. No pathologic mediastinal/hilar lymphadenopathy. Lungs inflated with incidental 1 cm right lower lobe calcified granuloma and left midlung subsegmental atelectasis/scarring. No infiltrate or effusion. Bony thorax intact with flowing osteophytes to the spine and sternotomy wires. Limited upper abdomen demonstrates fatty liver. Impression: 1. Negative pulmonary embolus. No acute cardiopulmonary abnormalities. 2. Chronic findings including atelectasis/scarring, fatty liver, arteriosclerotic disease, and old granulomatous disease.
[2024-05-01 14:26] VITALS: BP 121/78; PULSE 83; RESP 18; O2SAT 92
== END 2024-05-01 15:09 | disposition home or self-care (01) ==
LOC: ED 09:45
DX: R07.9 Chest pain, unspecified (principal); M79.661 Pain in right lower leg; E78.5 Hyperlipidemia, unspecified; E11.9 Type 2 diabetes mellitus without complications; Z79.4 Long term (current) use of insulin; Z79.899 Other long term (current) drug therapy
CPT/HCPCS: 36000; 36415; 71260; 80053; 83735; 83880; 84484; 85025; 85379; 93005; 93041; 93971; 94760; 96374; 99284; J1200; J2919; A9270-GY

== ENCOUNTER 2024-11-13 18:39 | Emergency (ER) | payer OTHER ==
[2024-11-13 18:51] VITALS: TEMP 97.2
[2024-11-13 19:04] LABS: Hemoglobin 14.9 g/dL (11.2-15.7); Mean Cell Volume 81.5 fL (79.4-94.8); Mean Corpuscular Hemoglobin 27.6 pg (25.6-32.2); Mean Corpuscular Hgb Concent. 33.9 g/dL (32.2-35.5); Mean Platelet Volume 11.4 fL (9.4-12.3); Platelet Count 282 x10^3/uL (182-369); Red Cell Distribution Width 14.7 % (11.7-14.4); White Blood Count 17.2 x10^3/uL (3.98-10.04)
[2024-11-13 19:14] LABS: ALBUMIN 4.4 g/dL (3.5-5.0); ANION GAP 22.8 MEQ/L (5-15); BILIRUBIN,TOTAL 0.7 mg/dL (0.2-1.3); Calcium 10.2 mg/dL (8.4-10.2); Creatinine 1 0.77 mg/dL (0.52-1.04); EST GLOMERULAR FILTRATION RATE 87.7 ML/MIN; Potassium 4.6 mmol/L (3.5-5.1); Total Protein 7.1 g/dL (6.3-8.2)
[2024-11-13 19:26] LABS: TROPONIN < 0.012 ng/mL (0.000-0.033)
[2024-11-13 19:29] LABS: MAGNESIUM 1.1 mg/dL (1.6-2.3)
[2024-11-13] MEDS: MAGNESIUM SULF 2 G/50 ML BAG 2 GM/50 ML PIGGYBACK IV ONE (19:45)
[2024-11-13] MEDS ORDERED: MAGNESIUM SULF 2 G/50 ML BAG 2 GM/50 ML PIGGYBACK IV ONE (19:46)
[2024-11-13 20:58] LABS: ATYPICAL LYMPHS 1 %; Eosinophil 1 % (0.7-5.8); Lymphocytes 57 % (19.3-51.7); Monocyte 4 % (4.7-12.5); Neutrophils 37 % (34.0-71.1); Platelet Estimate NORMAL (NORMAL); Total Cells Counted 100
[2024-11-13] MEDS ORDERED: MAALOX ES 30 ML UNIT DOSE ONE (21:39)
[2024-11-13] MEDS ORDERED: XYLOCAINE VISCOUS 2% 15 ML CUP ONE (21:39)
--- NOTE | 2024-11-13 21:40 | XRAY ---
Indication: Chest pain. Comparison: April 20, 2017 Portable chest demonstrates new minimal left midlung subsegmental/scarring. Remaining lungs clear. Heart borderline enlarged with interval CABG. Bony thorax intact again with osteopenia and mild degenerative changes. No acute findings.
[2024-11-13] MEDS: GI COCKTAIL 45 ML (Maalox/Lidocaine) PO ONE (21:43)
[2024-11-13] MEDS ORDERED: Adenocard IV 6 MG/2 ML IV ONE (23:45)
[2024-11-14] MEDS: Adenocard IV 6 MG/2 ML IV ONE
--- NOTE | 2024-11-14 00:18 | ERPHSYRPT ---
- History of Present Illness Historian: patient Exam Limitations: no limitations Patient Subjective Stated Complaint: pt here for pain to epigastric area since 1729 with sob, she states she tool a resp tx and nitro with no relief. after nitro she vomited x3 Triage Nursing Assessment: pt alert, arrived per wc, resp easy,skin warm.moist,pink, moves all ext well, occ cough, nonproductive, no edema noted, Physician History: Patient started having some epigastric pain around 5:30 PM.She did not have any shortness of breath or diaphoresis. Nothing really make the symptoms better or worse.She has a cardiac history. She had a triple bypass about 7 years ago. This was in [place]. She is getting ready see Dr. carrera In a couple weeks.She decided to come in when the chest pain lasted an hour or so. It was more epigastric pain and chest pain actually. She took some nitro which she had at home and then vomited.She said that the nitro did not help the chest pain.She does not have any shortness of breath. Nothing really makes the symptoms better or worse. Nitro Today/Relief: no nitro taken today Aspirin Treatment Today: no aspirin today Allergies/Adverse Reactions: acetaminophen [From Percocet] Allergy (Intermediate, Verified 11/13/24 18:42) Blisters oxycodone [From Percocet] Allergy (Intermediate, Verified 11/13/24 18:42) Blisters sulfamethoxazole [From Bactrim] Allergy (Intermediate, Verified 11/13/24 18:42) Swelling trimethoprim [From Bactrim] Allergy (Intermediate, Verified 11/13/24 18:42) Swelling Sulfa (Sulfonamide Antibiotics) Allergy (Verified 11/13/24 18:42) Hives nuclear dye Adverse Reaction (Intermediate, Uncoded 11/13/24 18:42) Nausea and Vomiting Home Medications: Aspirin 81 gm Chew [Baby Aspirin 81 mg Chew] 1 tab PO DAILY 09/12/14 [History] Albuterol 2 mg/5 ml Syrup [Ventolin Syrup 2 mg/5 ml] 2 mg PO Q4H PRN PRN 04/20/17 [History] Fenofibrate 160 mg PO DAILY 04/20/17 [History] Fluticasone/Salmeterol [Advair 250-50 Diskus] 2 puff IH BID 04/20/17 [History] Alendronate Sodium 70 mg [Fosamax 70 MG] 70 mg PO WEEKLY 10/23/24 [History] Apixaban [Eliquis] 5 mg PO DAILY 10/23/24 [History] Atorvastatin Calcium 80 mg PO DAILY 10/23/24 [History] Ezetimibe 10 mg [Zetia 10 MG] 10 mg PO DAILY 10/23/24 [History] Furosemide 40 mg PO DAILY 10/23/24 [History] Metoprolol Succinate 25 mg Xl* [Toprol-Xl 25MG Tablets] 25 mg PO DAILY 10/23/24 [History] PANTOPRAZOLE 40 mg Tablet [Protonix 40MG Tablet] 40 mg PO DAILY 10/23/24 [History] Semaglutide [Ozempic] 3 mg SQ WEEKLY 10/23/24 [History] Hx Tetanus, Diphtheria Vaccination/Date Given: Yes Hx Influenza Vaccination/Date Given: No Hx Pneumococcal Vaccination/Date Given: Yes Immunizations Up to Date: Yes Travel Risk - International Travel Have you traveled outside of the country in past 3 weeks: No - Emerging Infectious Disease Are you exhibiting symptoms associated with any current EIDs: No - Review of Systems Constitutional: No Symptoms Eyes: No Symptoms Ears, Nose, & Throat: No Symptoms Respiratory: No Symptoms Cardiac: Other (Epigastric pain) Abdominal/Gastrointestinal: Other (Epigastric pain) Genitourinary Symptoms: No Symptoms Musculoskeletal: No Symptoms Skin: No Symptoms All Other Systems: Reviewed and Negative - Past Medical History Pertinent Past Medical History: Yes Neurological History: Migraines ENT History: Cataracts Cardiac History: No Pertinent History Respiratory History: No Pertinent History Endocrine Medical History: Diabetes Type II Musculoskeletal History: Arthritis GI Medical History: No Pertinent History History: No Pertinent History Psycho-Social History: Anxiety Female Reproductive Disorders: No Pertinent History Other Medical History: Retina debra - Past Surgical History Past Surgical History: Yes Neuro Surgical History: No Pertinent History Cardiac: Cardiac Catheterization Respiratory: No Pertinent History Gastrointestinal: Cholecystectomy Genitourinary: No Pertinent History Musculoskeletal: Orthopedic Surgery Female Surgical History: Tubal Ligation Other Surgical History: bilateral knee surgeries - Social History Smoking Status: Former smoker Exposure to second hand smoke: Yes Drug Use: none - Social Determinants of Health Will the patient participate in the screening: Yes Do you worry about a steady place to live?: No Do you have any problems with any of the following?: No known problems In the past 12 months,have you had to go without utilities?: Yes Transportation Issues: Yes Has anyone in your support network made you feel unsafe?: No Have you or anyone in your house had to go w/o enough food: Yes - Nursing Vital Signs Nursing Vital Signs: Initial Vital Signs Temperature 97.2 F 11/13/24 18:50 Pulse Rate 128 H 11/13/24 18:50 Respiratory Rate 28 H 11/13/24 18:50 Blood Pressure 111/92 11/13/24 18:50 O2 Sat by Pulse Oximetry 97 11/13/24 18:50 Pain Scale Pain Intensity 2 - Physical Exam General Appearance: no apparent distress Eye Exam: PERRL/EOMI Ears, Nose, Throat Exam: normal ENT inspection Neck Exam: normal inspection Respiratory Exam: normal breath sounds, lungs clear, No chest tenderness Cardiovascular Exam: regular rate/rhythm, normal heart sounds, normal peripheral pulses Gastrointestinal/Abdomen Exam: soft, other (Epigastric pain) Pelvic Exam: not done Rectal Exam: deferred Back Exam: normal inspection Neurologic Exam: alert, oriented x 3 Skin Exam: normal color, warm, dry SpO2: 95 - Course Nursing assessment & vital signs reviewed: Yes EKG Interpreted by Me: RATE, NORMAL AXIS, Non-specific ST Changes, Other (Patient was in what look to be Omzet-[id number]-Gyiqg.) Ordered Tests: Active Orders 24 hr Category Date Time Status EKG-ER Only STAT Care 11/13/24 18:59 Active EKG-ER Only STAT Care 11/14/24 00:01 Active EKG-ER Only STAT Care 11/14/24 00:03 Active EKG-ER Only STAT Care 11/14/24 00:52 Active EKG-ER Only STAT Care 11/14/24 01:11 Active ACO SDOH Referral ONCE Cons 11/13/24 18:50 Active CHEST 1 VIEW (PORTABLE) Stat Exams 11/13/24 18:59 Completed ARTERIAL BLOOD GASES Stat Lab 11/14/24 00:56 Ordered CBC W DIFF Stat Lab 11/13/24 18:45 Results CMP Stat Lab 11/13/24 18:45 Completed D-DIMER QUANTITATIVE Stat Lab 11/13/24 18:45 Completed D-DIMER QUANTITATIVE Stat Lab 11/14/24 01:15 Received Lactic Acid Stat Lab 11/14/24 01:15 Completed MAG [MAGNESIUM] Stat Lab 11/13/24 18:45 Completed Manual Differential NC Stat Lab 11/13/24 18:45 Results Pathologist Review Stat Lab 11/13/24 18:45 Results TROPONIN Q4H Lab 11/13/24 18:45 Completed TROPONIN Q4H Lab 11/13/24 22:55 Completed TROPONIN Q4H Lab 11/14/24 01:15 Received Medication Summary Generic Name Dose Route Start Last Admin Trade Name Freq PRN Reason Stop Dose Admin Norepinephrine/Dextrose 8 mg in 250 mls @ 15 mls/hr 11/14/24 00:44 Norepinephrine 8 Mg/250 Ml-D5w IV 12/14/24 00:43 .[id number] PRN HYPOTENSION Protocol 8 MCG/MIN Sodium Chloride 1,000 mls @ 999 mls/hr 11/14/24 01:00 11/14/24 00:53 Sodium Chloride 0.9% 1000 Ml IV 12/14/24 00:59 999 mls/hr .Q1H1M ALLA Administration Discontinued Medications Generic Name Dose Route Start Last Admin Trade Name Freq PRN Reason Stop Dose Admin Adenosine 6 mg 11/13/24 23:35 11/14/24 00:00 Adenosine 6 Mg/2 Ml Vial IV 11/13/24 23:36 6 mg STAT ONE Administration Adenosine Confirm 11/13/24 23:45 Adenosine 6 Mg/2 Ml Vial Administered 11/13/24 23:46 Dose 6 mg IV .STK-MED ONE Al Hydrox/Mg Hydrox/Simethicone Confirm 11/13/24 21:39 Mag Hydrox/Al Hydrox/Simeth 30 Ml Udcup Administered 11/13/24 21:40 Dose 30 ml .ROUTE .STK-MED ONE Magnesium Sulfate/Water 2 gm in 50 mls @ 100 mls/hr 11/13/24 19:36 11/13/24 22:26 Magnesium Sulf 2 G/50 Ml Bag IV 11/13/24 20:05 Infused ONCE ONE Infusion Magnesium Sulfate/Water Confirm 11/13/24 19:46 Magnesium Sulf 2 G/50 Ml Bag Administered 11/13/24 19:47 Dose 2 gm in 50 mls @ ud IV .STK-MED ONE Sodium Chloride Confirm 11/14/24 00:44 Sodium Chloride 0.9% 1000 Ml Administered 11/14/24 00:45 Dose 1,000 mls @ ud .ROUTE .STK-MED ONE Lidocaine HCl Confirm 11/13/24 21:39 Lidocaine Hcl 2% Viscous 15 Ml Udcup Administered 11/13/24 21:40 Dose 15 ml .ROUTE .STK-MED ONE Magnesium Hydroxide 45 ml 11/13/24 21:32 11/13/24 21:43 Mag Hydrx/Alum Hyd/Simeth/Lido 45 Ml Bottle PO 11/13/24 21:33 45 ml STAT ONE Administration Lab/Rad Data: Laboratory Result Diagrams 11/13/24 18:45 11/13/24 18:45 Laboratory Results 11/14/24 11/13/24 11/13/24 Range/Units 01:15 22:55 18:45 WBC (3.98-10.04) x10^3/uL RBC (3.93-5.22) x10^6/uL Hgb (11.2-15.7) g/dL Hct (34.1-44.9) % MCV (79.4-94.8) fL MCH (25.6-32.2) pg MCHC (32.2-35.5) g/dL RDW (11.7-14.4) % Plt Count (182-369) x10^3/uL MPV (9.4-12.3) fL Segmented Neutrophils (34.0-71.1) % Lymphocytes (Manual) (19.3-51.7) % Monocytes (Manual) (4.7-12.5) % Eosinophils (Manual) (0.7-5.8) % Atypical Lymphocytes % Platelet Estimate (NORMAL) RBC Morphology Smear Path Review D-Dimer 0.42 (0.0-0.50) mg/L Sodium (135-145) mmol/L Potassium (3.5-5.1) mmol/L Chloride (98-107) mmol/L Carbon Dioxide (22-30) mmol/L Anion Gap (5-15) MEQ/L BUN (7-17) mg/dL Creatinine (0.52-1.04) mg/dL Estimated GFR ML/MIN Glucose (74-106) mg/dL Lactic Acid 2.5 H (0.4-2.0) Calcium (8.4-10.2) mg/dL Magnesium (1.6-2.3) mg/dL Total Bilirubin (0.2-1.3) mg/dL AST (14-36) U/L ALT (0-35) U/L Alkaline Phosphatase (38-126) U/L Troponin I < 0.012 (0.000-0.033) ng/mL Serum Total Protein (6.3-8.2) g/dL Albumin (3.5-5.0) g/dL 11/13/24 11/13/24 11/13/24 Range/Units 18:45 18:45 18:45 WBC 17.2 H (3.98-10.04) x10^3/uL RBC 5.40 H (3.93-5.22) x10^6/uL Hgb 14.9 (11.2-15.7) g/dL Hct 44.0 (34.1-44.9) % MCV 81.5 (79.4-94.8) fL MCH 27.6 (25.6-32.2) pg MCHC 33.9 (32.2-35.5) g/dL RDW 14.7 H (11.7-14.4) % Plt Count 282 (182-369) x10^3/uL MPV 11.4 (9.4-12.3) fL Segmented Neutrophils 37 (34.0-71.1) % Lymphocytes (Manual) 57 H (19.3-51.7) % Monocytes (Manual) 4 L (4.7-12.5) % Eosinophils (Manual) 1 (0.7-5.8) % Atypical Lymphocytes 1 % Platelet Estimate NORMAL (NORMAL) RBC Morphology NORMAL Smear Path Review Pending D-Dimer (0.0-0.50) mg/L Sodium 137 (135-145) mmol/L Potassium 4.6 (3.5-5.1) mmol/L Chloride 97 L (98-107) mmol/L Carbon Dioxide 22 (22-30) mmol/L Anion Gap 22.8 H (5-15) MEQ/L BUN 22 H (7-17) mg/dL Creatinine 0.77 (0.52-1.04) mg/dL Estimated GFR 87.7 ML/MIN Glucose 288 H (74-106) mg/dL Lactic Acid (0.4-2.0) Calcium 10.2 (8.4-10.2) mg/dL Magnesium 1.1 L (1.6-2.3) mg/dL Total Bilirubin 0.70 (0.2-1.3) mg/dL AST 39 H (14-36) U/L ALT 33 (0-35) U/L Alkaline Phosphatase 104 (38-126) U/L Troponin I < 0.012 (0.000-0.033) ng/mL Serum Total Protein 7.1 (6.3-8.2) g/dL Albumin 4.4 (3.5-5.0) g/dL - Progress Progress: unchanged Air Movement: good Progress Note: Patient was stable throughout stay. Her initial EKG showed what looked to be [id number]-[id number]. She was tachycardic. She was normotensive however. She remained at around 125 for heart rate. Her serial troponins were both negative. I spoke with Dr. Arora who is on for Dr. Carrera .He suggested we try adenosine. We did that and there was no change in her rhythm or EKG.The second EKG was done after the adenosine. It looks identical to the first.She had a low magnesium is 1.1 I gave her 2 g of magnesium. I also tried a GI cocktail wondering if the epigastric pain may have been GI related. It gave her minimal relief.I got a page out to Dr. Arora again for what to do with her.She dropped her pressures possibly but once we readjusted the cuff it went back up to 120/80. She was asymptomatic. Her pressure was initially 110s over 70s it dropped into the 60s over 30s but I think that that might have been a cuff reading wrong. Once we readjusted the cuff it went up to 120/80. I spoke with Dr. Arora what is going to send her to [facility]. I am going to go ahead and order some IV fluids on her.We are trying to transfer her to [facility] I spoke with Dr. [email or web address] She agreed to accept the patient.Patient was stable at the time of discharge. 11/14/24 00:22 11/14/24 00:24 11/14/24 00:45 11/14/24 01:18 11/14/24 01:26 Blood Culture(s) Obtained: No Antibiotics given: No - Departure Departure Disposition: Transfer Clinical Impression: Chest pain Condition: Fair Critical Care Time: Yes Critical Care Time(excluding separately billable procedures): Critical 30-74 mins Referrals: INDY CRANE MD [Primary Care Provider, [facility]] - Follow up/PCP as directed
[2024-11-14] MEDS ORDERED: Sodium Chloride 0.9% 1000 ML 1,000 ML ONE (00:44)
[2024-11-14] MEDS ORDERED: NOREPINEPHRINE 8 MG/250 ML-D5W 8 MG/250 ML PLAST..BAG IV PRN (00:44)
[2024-11-14] MEDS: Sodium Chloride 0.9% 1000 ML 1,000 ML IV SCH (00:53)
[2024-11-14 01:47] LABS: VBG CARBOXYHEMOGLOBIN 3.3 % T HGB (0.0-6.9); VBG HCO3- 25.7 meq/L (22-28); VBG HEMOGLOBIN 15.5; VBG POTASSIUM 4.5 (3.5-5.1); VBG pH 7.5 (7.32-7.42)
[2024-11-14] MEDS ORDERED: BABY ASPIRIN 81 MG CHEW ONE (01:55)
[2024-11-14] MEDS: BABY ASPIRIN 81 MG CHEW PO ONE (01:55)
[2024-11-14 03:09] VITALS: BP 127/75; PULSE 121; RESP 20; O2SAT 95
== END 2024-11-14 03:48 | disposition short-term general hospital (02) ==
LOC: ED 18:39
DX: R07.9 Chest pain, unspecified (principal); I45.6 Pre-excitation syndrome; R10.13 Epigastric pain; E11.9 Type 2 diabetes mellitus without complications; Z79.01 Long term (current) use of anticoagulants; Z79.85 Long-term (current) use of injectable non-insulin antidiabetic drugs; Z79.899 Other long term (current) drug therapy; Z59.12 Inadequate housing utilities; Z59.82 Transportation insecurity; Z59.41 Food insecurity
CPT/HCPCS: 36415; 71045; 80053; 82805; 83605; 83735; 84484; 85025; 85379; 93005; 93041; 94760; 96361; 96365; 96366; 96375; 99285; 99291; J0153; A9270-GY; J3475

== ENCOUNTER 2025-02-10 18:18 | Emergency (ER) | payer OTHER ==
--- NOTE | 2025-02-10 18:31 | ERPHSYRPT ---
- History of Present Illness Time Seen by Provider: 02/10/25 18:31 Source: patient, EMS, old records Exam Limitations: no limitations Physician History: This is a 59-year-old white female patient who is morbidly obese and arrives to the emergency department by the instructor bus trolley and taxi service secondary to increasing shortness of breath and increasing swelling in her feet and ankles over the last couple days. Patient was seen here on 01/31/2025 with the complaint of chest pain. Patient has not had a fever. She denies cough. Patient is supposed to be on oxygen for her COPD. However they have not delivered her oxygen tanks yet. Patient is on Eliquis secondary to atrial fibrillation. She has has history of coronary artery disease (CABG), she has a history of hyperlipidemia hypertension, CHF, insulin-dependent diabetes, migraine headaches anxiety and COPD. Patient is on Lasix 40 mg orally each day. I reviewed and interpreted the laboratory data results and twelve-lead EKG from her emergency department visit on 01/31/2025. Patient had a white blood cell count 11.3, BNP of 390 and 2 normal troponin levels. The twelve-lead EKG showed a heart rate of 72, normal sinus rhythm, normal axis, prolonged QT interval and nonspecific ST changes. Patient has no significant chest pain today Activities at Onset: none Severity of Dyspnea-Max: mild Severity of Dyspnea-Current: mild Possible Cause: frequent episodes Modifying Factors: Improves With: activity, oxygen (Improved). Worsens With: coughing Associated Symptoms: anxiety, ankle swelling, No cough, No chest pain/discomfort Allergies/Adverse Reactions: acetaminophen [From Percocet] Allergy (Intermediate, Verified 01/31/25 16:12) Blisters oxycodone [From Percocet] Allergy (Intermediate, Verified 01/31/25 16:12) Blisters sulfamethoxazole [From Bactrim] Allergy (Intermediate, Verified 01/31/25 16:12) Swelling trimethoprim [From Bactrim] Allergy (Intermediate, Verified 01/31/25 16:12) Swelling Sulfa (Sulfonamide Antibiotics) Allergy (Verified 01/31/25 16:12) Hives nuclear dye Adverse Reaction (Intermediate, Uncoded 01/29/25 08:54) Nausea and Vomiting Home Medications: Alendronate Sodium 70 mg [Fosamax 70 MG] 70 mg PO WEEKLY 10/23/24 [History] Apixaban [Eliquis] 5 mg PO BID 10/23/24 [History] Atorvastatin Calcium 80 mg PO QHS 10/23/24 [History] Ezetimibe 10 mg [Zetia 10 MG] 10 mg PO DAILY 10/23/24 [History] Furosemide 40 mg PO DAILY 10/23/24 [History] PANTOPRAZOLE 40 mg Tablet [Protonix 40MG Tablet] 40 mg PO DAILY 10/23/24 [History] Semaglutide [Ozempic] 2 mg SQ WEEKLY 10/23/24 [History] Metoprolol Succinate 25 mg Xl* [Toprol-Xl 25MG Tablets] 12.5 mg PO BID 11/20/24 [History] Albuterol Common Canister [Ventolin Common Canister] 2 puff IH Q4HPRN PRN 12/23/24 [History] Albuterol Sulfate 2.5 mg IH TID PRN 12/23/24 [History] Calcium Carbonate/Vitamin D3 [Calcium 500-Vit D3 600 Caplet] 2 each PO DAILY 12/23/24 [History] Insulin Glargine [Lantus Insulin] 120 unit SQ BID 12/23/24 [History] Insulin Lispro [Admelog Solostar] 30 unit SQ AC 12/23/24 [History] Nitroglycerin 0.4 mg Tablet [Nitrostat 0.4 MG Tablet] 0.4 mg SL Q5MIN PRN MR X 3 PRN 12/23/24 [History] Aspirin EC 81 mg [Ecotrin 81 mg] 81 mg PO DAILY 12/24/24 [History] Cholecalciferol (Vitamin D3) [Vitamin D3] 125 mcg PO DAILY 12/24/24 [History] Diphenhydramine HCl 25 mg [Benadryl 25 mg Capsule] 12.5 mg PO QHS 12/24/24 [History] Gabapentin [Neurontin ] 300 mg PO TID 12/24/24 [History] Sacubitril/Valsartan [Entresto 24 mg-26 mg Tablet] 1 tab PO BID 01/04/25 [History] Spironolactone 12.5 mg PO DAILY 01/04/25 [History] Albuterol 2.5 mg/3 ml Neb [Proventil 2.5 mg/3 ml Neb] 1 vial NEBULIZE BID 01/21/25 [History] Budesonide/Formoterol Fumarate [Symbicort 160-4.5 Mcg Inhaler] 2 puff PO BID 01/21/25 [History] Empagliflozin [Jardiance] 25 mg PO DAILY 01/21/25 [History] Isosorbide Mononitrate [Isosorbide Mononitrate ER] 30 mg PO DAILY 01/21/25 [History] Magnesium Oxide 400 mg [Mag-Ox 400] 400 mg PO DAILY 01/21/25 [History] Montelukast Sodium 10 mg [Singulair 10 MG] 10 mg PO DAILY 01/21/25 [History] Hx Tetanus, Diphtheria Vaccination/Date Given: Yes Hx Influenza Vaccination/Date Given: Yes Hx Pneumococcal Vaccination/Date Given: Yes Travel Risk - International Travel Have you traveled outside of the country in past 3 weeks: No - Emerging Infectious Disease Are you exhibiting symptoms associated with any current EIDs: No Symptoms: Shortness of Breath Comment: chest x-ray and flu,COVID, RSV swab complete while in the ER - Review of Systems Constitutional: No Symptoms Eyes: No Symptoms Ears, Nose, & Throat: No Symptoms Respiratory: Dyspnea, No Stridor, No Wheezing Cardiac: No Symptoms Abdominal/Gastrointestinal: No Symptoms Genitourinary Symptoms: No Symptoms Musculoskeletal: No Symptoms Skin: No Symptoms Neurological: No Symptoms Psychological: No Symptoms Endocrine: No Symptoms Hematologic/Lymphatic: No Symptoms Immunological/Allergic: No Symptoms All Other Systems: Reviewed and Negative - Past Medical History Pertinent Past Medical History: Yes Neurological History: Migraines ENT History: Cataracts Cardiac History: No Pertinent History Respiratory History: No Pertinent History Endocrine Medical History: Diabetes Type II Musculoskeletal History: Arthritis GI Medical History: No Pertinent History History: No Pertinent History Psycho-Social History: Anxiety Female Reproductive Disorders: No Pertinent History Other Medical History: Dot richardson - Past Surgical History Past Surgical History: Yes Neuro Surgical History: No Pertinent History Cardiac: Cardiac Catheterization Respiratory: No Pertinent History Gastrointestinal: Cholecystectomy Genitourinary: No Pertinent History Musculoskeletal: Orthopedic Surgery Female Surgical History: Hysterectomy, Tubal Ligation Other Surgical History: bilateral knee surgeries times 3 Significant Family History: diabetes - Social History Smoking Status: Never smoker Exposure to second hand smoke: No Drug Use: none - Social Determinants of Health Will the patient participate in the screening: Yes Do you worry about a steady place to live?: No In the past 12 months,have you had to go without utilities?: Yes Transportation Issues: Yes Has anyone in your support network made you feel unsafe?: No Have you or anyone in your house had to go w/o enough food: Yes Comment: ACO AWARE AND HAS GIVEN PATIENT LIST OF RESOURCES - Nursing Vital Signs Nursing Vital Signs: Initial Vital Signs Temperature 97.4 F 02/10/25 18:19 Pulse Rate 80 02/10/25 18:19 Respiratory Rate 20 02/10/25 18:19 Blood Pressure 128/70 02/10/25 18:19 O2 Sat by Pulse Oximetry 96 02/10/25 18:19 Pain Scale Pain Intensity 2 - Physical Exam General Appearance: no apparent distress, alert, anxiety, obese Eye Exam: PERRL/EOMI, eyes nml inspection Ears, Nose, Throat Exam: hearing grossly normal, normal ENT inspection, normal pharynx Neck Exam: normal inspection, non-tender, supple, full range of motion Respiratory Exam: normal breath sounds, lungs clear, airway intact, No chest tenderness, No respiratory distress Cardiovascular/Chest Exam: normal heart sounds, regular rate/rhythm Abdominal/Gastrointestinal Exam: soft, normal bowel sounds, No tenderness Rectal Exam: not done Extremity Exam: non-tender, normal range of motion, normal inspection, No pedal edema (I do not feel the patient has significant pedal edema at this time) Neurologic Exam: alert, oriented x 3, cooperative, director of career services II-XII nml as tested, sensation nml Skin Exam: normal color, warm, dry Lymphatic Exam: No adenopathy SpO2 Interpretation: borderline oxygenation, O2 applied O2 Delivery: Nasal Cannula (2 liters oxygen) - Course Nursing assessment & vital signs reviewed: Yes EKG Interpreted by Me: RATE (78), Sinus Rhythm, NORMAL AXIS, NORMAL INTERVALS, NORMAL QRS, Other (QTc is 463. No evidence of acute ischemia. Compared to the twelve-lead EKG that was performed on 01/31/2025, there is resolution of prolonged QT interval and resolution of nonspecific ST wave changes) Ordered Tests: Active Orders 24 hr Category Date Time Status Chief Technician STAT Care 02/10/25 18:48 Active EKG-ER Only STAT Care 02/10/25 18:48 Active IV Insertion STAT Care 02/10/25 18:48 Active Pulse Oximetry (ED) STAT Care 02/10/25 18:48 Active CHEST 1 VIEW (PORTABLE) Stat Exams 02/10/25 18:48 Taken CBC W DIFF Stat Lab 02/10/25 19:15 Completed CMP Stat Lab 02/10/25 19:15 Completed MAGNESIUM Stat Lab 02/10/25 19:15 Completed NT PRO BNPII Stat Lab 02/10/25 19:15 Completed TROPONIN Q4H Lab 02/10/25 19:15 Completed TROPONIN Q4H Lab 02/10/25 21:00 Completed TROPONIN Q4H Lab 02/11/25 03:00 Ordered Medication Summary Discontinued Medications Generic Name Dose Route Start Last Admin Trade Name Freq PRN Reason Stop Dose Admin Ceftriaxone Sodium 1 gm in 100 mls @ 200 mls/hr 02/10/25 19:51 02/10/25 20:35 Rocephin 1 Gm / 100 Ml Nacl IV 02/10/25 20:20 Infused STAT ONE Infusion Ceftriaxone Sodium Confirm 02/10/25 20:03 Rocephin 1 Gm / 100 Ml Nacl Administered 02/10/25 20:04 Dose 1 gm in 100 mls @ ud IV .STK-MED ONE Tramadol HCl 50 mg 02/10/25 20:15 02/10/25 20:20 Tramadol Hcl 50 Mg Tablet PO 02/10/25 20:16 50 mg STAT ONE Administration Tramadol HCl Confirm 02/10/25 20:20 Tramadol Hcl 50 Mg Tablet Administered 02/10/25 20:21 Dose 50 mg .ROUTE .STK-MED ONE Lab/Rad Data: Laboratory Result Diagrams 02/10/25 19:15 02/10/25 19:15 Laboratory Results 02/10/25 02/10/25 02/10/25 Range/Units 21:00 19:15 19:15 WBC (3.98-10.04) x10^3/uL RBC (3.93-5.22) x10^6/uL Hgb (11.2-15.7) g/dL Hct (34.1-44.9) % MCV (79.4-94.8) fL MCH (25.6-32.2) pg MCHC (32.2-35.5) g/dL RDW (11.7-14.4) % Plt Count (182-369) x10^3/uL MPV (9.4-12.3) fL Gran % (34.0-71.1) % Immature Gran % (Auto) (0.001-0.429) % Nucleat RBC Rel Count (0.00-0.2) % Eos # (Auto) (0.04-0.36) x10^3/uL Immature Gran # (Auto) (0.001-0.031) x10^3u/L Absolute Lymphs (auto) (1.18-3.74) x10^3/uL Absolute Monos (auto) (0.24-0.86) x10^3/uL Absolute Nucleated RBC (0.00-0.012) x10^3u/L Lymphocytes % (19.3-51.7) % Monocytes % (4.7-12.5) % Eosinophils % (0.7-5.8) % Basophils % (0.1-1.2) % Absolute Granulocytes (1.56-6.13) x10^3/uL Basophils # (0.01-0.08) x10^3/uL Sodium 138 (135-145) mmol/L Potassium 4.3 (3.5-5.1) mmol/L Chloride 105 (98-107) mmol/L Carbon Dioxide 25 (22-30) mmol/L Anion Gap 11.9 (5-15) MEQ/L BUN 26 H (7-17) mg/dL Creatinine 0.74 (0.52-1.04) mg/dL Estimated GFR 92.0 ML/MIN Glucose 211 H (74-106) mg/dL Calcium 9.4 (8.4-10.2) mg/dL Magnesium 1.9 (1.6-2.3) mg/dL Total Bilirubin 0.30 (0.2-1.3) mg/dL AST 30 (14-36) U/L ALT 33 (0-35) U/L Alkaline Phosphatase 108 (38-126) U/L Troponin I < 0.012 < 0.012 (0.000-0.033) ng/mL NT-Pro-B Natriuret Pep 328 (<300) pg/mL Serum Total Protein 6.6 (6.3-8.2) g/dL Albumin 3.9 (3.5-5.0) g/dL 02/10/25 Range/Units 19:15 WBC 17.5 H (3.98-10.04) x10^3/uL RBC 4.77 (3.93-5.22) x10^6/uL Hgb 13.4 (11.2-15.7) g/dL Hct 40.9 (34.1-44.9) % MCV 85.7 (79.4-94.8) fL MCH 28.1 (25.6-32.2) pg MCHC 32.8 (32.2-35.5) g/dL RDW 14.4 (11.7-14.4) % Plt Count 259 (182-369) x10^3/uL MPV 10.8 (9.4-12.3) fL Gran % 65.0 (34.0-71.1) % Immature Gran % (Auto) 0.8 H (0.001-0.429) % Nucleat RBC Rel Count 0.0 (0.00-0.2) % Eos # (Auto) 0.01 L (0.04-0.36) x10^3/uL Immature Gran # (Auto) 0.14 H (0.001-0.031) x10^3u/L Absolute Lymphs (auto) 5.09 H (1.18-3.74) x10^3/uL Absolute Monos (auto) 0.84 (0.24-0.86) x10^3/uL Absolute Nucleated RBC 0.00 (0.00-0.012) x10^3u/L Lymphocytes % 29.0 (19.3-51.7) % Monocytes % 4.8 (4.7-12.5) % Eosinophils % 0.1 L (0.7-5.8) % Basophils % 0.3 (0.1-1.2) % Absolute Granulocytes 11.40 H (1.56-6.13) x10^3/uL Basophils # 0.05 (0.01-0.08) x10^3/uL Sodium (135-145) mmol/L Potassium (3.5-5.1) mmol/L Chloride (98-107) mmol/L Carbon Dioxide (22-30) mmol/L Anion Gap (5-15) MEQ/L BUN (7-17) mg/dL Creatinine (0.52-1.04) mg/dL Estimated GFR ML/MIN Glucose (74-106) mg/dL Calcium (8.4-10.2) mg/dL Magnesium (1.6-2.3) mg/dL Total Bilirubin (0.2-1.3) mg/dL AST (14-36) U/L ALT (0-35) U/L Alkaline Phosphatase (38-126) U/L Troponin I (0.000-0.033) ng/mL NT-Pro-B Natriuret Pep (<300) pg/mL Serum Total Protein (6.3-8.2) g/dL Albumin (3.5-5.0) g/dL - Progress Progress: improved, re-examined Air Movement: good Progress Note: 02/10/25 19:13 My medical decision making and the assignment of moderate complexity of this patient's medical issue today is based on review of the patient's past medical history, review the patient's medication list, review patient drug allergy list, history present illness and physical findings on examination. The workup in this patient includes placement of intravenous line, CBC, CMP, BNP, troponin level, chest x-ray, twelve-lead EKG 02/10/25 20:08 Differential diagnosis includes but is not limited to CHF, COPD exacerbation, myocardial infarction, electrolyte abnormalities, arrhythmia, anemia, pneumonia I interpreted the patient's laboratory data results. Based on laboratory data results, the patient has a leukocytosis with a left shift. There are no other acute, emergent medical issues based on the laboratory data results. Patient's BNP, troponin and renal function are normal The preliminary report of the chest x-ray was interpreted by me. When I compared the chest x-ray from 01/31/2005 to today's chest x-ray, there appears to be increased lung markings in the right base suggesting possibly a mild or early pulmonary infiltrate. I do not see pulmonary congestion or pleural effusion. 02/10/25 20:10 The patient wanted medication for headache. I offered acetaminophen which she says she absolutely cannot take. She stated she would like to have some ibuprofen. However, the patient is taking Eliquis. I asked the patient what she usually takes at home for her headache and she says usually nothing. We will repeat the patient's troponin level 2 hours from the last draw. If this value is normal, we will discharge her to home. 02/10/25 20:14 Patient was asked about tramadol use. She states that she can take that medication without adverse effects. 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 Avoid exposure to any type of smoke. Take all your medications as prescribed. Follow-up with your primary care provider tomorrow, 02/10/2025 to make arrangements for follow-up appointment to be seen in the next 3 to 5 days. In addition discussed the retrieval of your oxygen tank. Take your antibiotics and other medications as prescribed. Prescriptions: Cefdinir 300 mg PO BID #14 cap
[2025-02-10 18:33] VITALS: TEMP 97.4
[2025-02-10 19:30] LABS: BASOPHIL % 0.3 % (0.1-1.2); Basophil (Absolute #) 0.05 x10^3/uL (0.01-0.08); Eosinophil (Absolute #) 0.01 x10^3/uL (0.04-0.36); Hematocrit 40.9 % (34.1-44.9); Hemoglobin 13.4 g/dL (11.2-15.7); IMMATURE GRAN # 0.14 x10^3u/L (0.001-0.031); IMMATURE GRAN % 0.8 % (0.001-0.429); Lymphocyte (Absolute #) 5.09 x10^3/uL (1.18-3.74); Mean Corpuscular Hemoglobin 28.1 pg (25.6-32.2); Mean Corpuscular Hgb Concent. 32.8 g/dL (32.2-35.5); Monocyte (Absolute #) 0.84 x10^3/uL (0.24-0.86); NUCLEATED RBC # 0.00 x10^3u/L (0.00-0.012); NUCLEATED RBC % 0.0 % (0.00-0.2); Platelet Count 259 x10^3/uL (182-369); Red Blood Count 4.77 x10^6/uL (3.93-5.22); White Blood Count 17.5 x10^3/uL (3.98-10.04)
[2025-02-10 19:45] LABS: Calcium 9.4 mg/dL (8.4-10.2); Carbon Dioxide 25.0 mmol/L (22-30); Creatinine 1 0.74 mg/dL (0.52-1.04); EST GLOMERULAR FILTRATION RATE 92.0 ML/MIN; Glucose 211.0 mg/dL (74-106); Potassium 4.3 mmol/L (3.5-5.1); SGOT/AST 30.0 U/L (14-36); SGPT/ALT 33.0 U/L (0-35); Total Protein 6.6 g/dL (6.3-8.2)
[2025-02-10 19:57] LABS: NT PRO BNPII 328 pg/mL (<300); TROPONIN < 0.012 ng/mL (0.000-0.033)
[2025-02-10] MEDS ORDERED: ROCEPHIN 1 GM / 100 ML NaCl 1 GM/100 ML IVPB IV ONE (20:03)
[2025-02-10] MEDS: ROCEPHIN 1 GM / 100 ML NaCl 1 GM/100 ML IVPB IV ONE (20:03)
[2025-02-10] MEDS: ULTRAM 50 MG PO ONE (20:20)
[2025-02-10] MEDS ORDERED: ULTRAM 50 MG ONE (20:20)
[2025-02-10 21:04] VITALS: O2SAT 98
[2025-02-10 22:16] VITALS: BP 105/58
[2025-02-10 22:23] LABS: Slide Review 1 YES
[2025-02-10 22:28] VITALS: PULSE 73; RESP 22
--- NOTE | 2025-02-11 08:59 | XRAY ---
Indication: Short of breath. Comparison: January 31, 2025 Portable chest unchanged again demonstrating left midlung subsegmental atelectasis/scarring. No focal infiltrate, consolidation, or large effusion. Heart not enlarged again with CABG. No new/acute findings.
== END 2025-02-10 22:48 | disposition home or self-care (01) ==
LOC: ED 18:18
DX: R91.8 Other nonspecific abnormal finding of lung field (principal); R06.02 Shortness of breath; I11.0 Hypertensive heart disease with heart failure; I50.9 Heart failure, unspecified; E11.9 Type 2 diabetes mellitus without complications; Z79.01 Long term (current) use of anticoagulants; Z79.85 Long-term (current) use of injectable non-insulin antidiabetic drugs; Z79.4 Long term (current) use of insulin; Z79.84 Long term (current) use of oral hypoglycemic drugs; Z79.899 Other long term (current) drug therapy; Z59.12 Inadequate housing utilities; Z59.41 Food insecurity; Z59.82 Transportation insecurity

== ENCOUNTER 2025-04-09 11:30 | Emergency (ER) | payer OTHER ==
--- NOTE | 2025-04-09 11:40 | ERPHSYRPT ---
- History of Present Illness Time Seen by Provider: 04/09/25 11:38 Source: patient, EMS, old records Exam Limitations: clinical condition Physician History: This is an overweight 59-year-old white female patient who arrives to the emergency department by the video tape transferrer service with a complaint of primarily shortness of breath but she also states there is some chest tightness. Patient had an appointment to see Dr. Crane this afternoon for a breathing test. Her last nebulizer treatment was last evening. Patient has multiple medical issues including atrial fibrillation, hyperlipidemia, osteoporosis, hypertension, gastroesophageal reflux disease, COPD, asthma, insulin-dependent diabetes, coronary disease and CHF. Patient is on Eliquis. Timing/Duration: day(s) (Worsening over the last few days) Severity of Dyspnea-Max: mild (To moderate) Severity of Dyspnea-Current: mild (To moderate) Possible Cause: frequent episodes, chronic episodes Modifying Factors: Improves With: nothing Associated Symptoms: chest pain/discomfort (Described as mild chest tightness), No cough, No weakness, No hemoptysis Allergies/Adverse Reactions: acetaminophen [From Percocet] Allergy (Intermediate, Verified 04/09/25 11:35) Blisters oxycodone [From Percocet] Allergy (Intermediate, Verified 04/09/25 11:35) Blisters sulfamethoxazole [From Bactrim] Allergy (Intermediate, Verified 04/09/25 11:35) Swelling trimethoprim [From Bactrim] Allergy (Intermediate, Verified 04/09/25 11:35) Swelling Sulfa (Sulfonamide Antibiotics) Allergy (Verified 04/09/25 11:35) Hives nuclear dye Adverse Reaction (Intermediate, Uncoded 04/09/25 11:35) Nausea and Vomiting Home Medications: Alendronate Sodium 70 mg [Fosamax 70 MG] 70 mg PO WEEKLY 10/23/24 [History] Apixaban [Eliquis] 5 mg PO BID 10/23/24 [History] Atorvastatin Calcium 80 mg PO QHS 10/23/24 [History] Ezetimibe 10 mg [Zetia 10 MG] 10 mg PO DAILY 10/23/24 [History] Furosemide 40 mg PO DAILY 10/23/24 [History] PANTOPRAZOLE 40 mg Tablet [Protonix 40MG Tablet] 40 mg PO DAILY 10/23/24 [History] Metoprolol Succinate 25 mg Xl* [Toprol-Xl 25MG Tablets] 12.5 mg PO BID 11/20/24 [History] Albuterol Sulfate 2.5 mg IH TID PRN 12/23/24 [History] Insulin Glargine [Lantus Insulin] 120 unit SQ BID 12/23/24 [History] Insulin Lispro [Admelog Solostar] 30 unit SQ AC 12/23/24 [History] Nitroglycerin 0.4 mg Tablet [Nitrostat 0.4 MG Tablet] 0.4 mg SL Q5MIN PRN MR X 3 PRN 12/23/24 [History] Aspirin EC 81 mg [Ecotrin 81 mg] 81 mg PO DAILY 12/24/24 [History] Cholecalciferol (Vitamin D3) [Vitamin D3] 125 mcg PO DAILY 12/24/24 [History] Diphenhydramine HCl 25 mg [Benadryl 25 mg Capsule] 12.5 mg PO QHS 12/24/24 [History] Gabapentin [Neurontin ] 300 mg PO TID 12/24/24 [History] Sacubitril/Valsartan [Entresto 24 mg-26 mg Tablet] 1 tab PO BID 01/04/25 [History] Spironolactone 12.5 mg PO DAILY 01/04/25 [History] Albuterol 2.5 mg/3 ml Neb [Proventil 2.5 mg/3 ml Neb] 1 vial NEBULIZE BID 01/21/25 [History] Budesonide/Formoterol Fumarate [Symbicort 160-4.5 Mcg Inhaler] 2 puff PO BID 01/21/25 [History] Empagliflozin [Jardiance] 25 mg PO DAILY 01/21/25 [History] Isosorbide Mononitrate [Isosorbide Mononitrate ER] 30 mg PO DAILY 01/21/25 [History] Magnesium Oxide 400 mg [Mag-Ox 400] 400 mg PO DAILY 01/21/25 [History] Montelukast Sodium 10 mg [Singulair 10 MG] 10 mg PO DAILY 01/21/25 [History] Hx Tetanus, Diphtheria Vaccination/Date Given: Yes Hx Influenza Vaccination/Date Given: Yes Hx Pneumococcal Vaccination/Date Given: Yes Travel Risk - International Travel Have you traveled outside of the country in past 3 weeks: No - Emerging Infectious Disease Are you exhibiting symptoms associated with any current EIDs: No Symptoms: Shortness of Breath Comment: chest x-ray and flu,COVID, RSV swab complete while in the ER - Review of Systems Constitutional: No Symptoms Eyes: No Symptoms Ears, Nose, & Throat: No Symptoms Respiratory: Dyspnea, Dyspnea on Exertion (PIERCE) Cardiac: Chest Pain (Described as central substernal chest tightness without radiation) Abdominal/Gastrointestinal: No Symptoms Genitourinary Symptoms: No Symptoms Musculoskeletal: No Symptoms Skin: No Symptoms Neurological: No Symptoms Psychological: No Symptoms Endocrine: No Symptoms Hematologic/Lymphatic: No Symptoms Immunological/Allergic: No Symptoms All Other Systems: Reviewed and Negative - Past Medical History Pertinent Past Medical History: Yes Neurological History: Migraines ENT History: Cataracts Cardiac History: No Pertinent History Respiratory History: No Pertinent History Endocrine Medical History: Diabetes Type II Musculoskeletal History: Arthritis GI Medical History: No Pertinent History History: No Pertinent History Psycho-Social History: Anxiety Female Reproductive Disorders: No Pertinent History Other Medical History: Retina freckle - Past Surgical History Past Surgical History: Yes Neuro Surgical History: No Pertinent History Cardiac: Cardiac Catheterization Respiratory: No Pertinent History Gastrointestinal: Cholecystectomy Genitourinary: No Pertinent History Musculoskeletal: Orthopedic Surgery Female Surgical History: Hysterectomy, Tubal Ligation Other Surgical History: bilateral knee surgeries times 3 Significant Family History: diabetes - Social History Smoking Status: Never smoker Exposure to second hand smoke: Yes - Social Determinants of Health In the past 12 months,have you had to go without utilities?: No Transportation Issues: No Have you or anyone in your house had to go w/o enough food: No - Nursing Vital Signs Nursing Vital Signs: Initial Vital Signs Temperature 98.3 F 04/09/25 11:34 Pulse Rate 110 H 04/09/25 11:34 Respiratory Rate 21 04/09/25 11:34 Blood Pressure 121/82 04/09/25 11:34 Pain Scale Pain Intensity 3 - Physical Exam General Appearance: no apparent distress, alert, anxiety, obese Eye Exam: PERRL/EOMI, eyes nml inspection Ears, Nose, Throat Exam: hearing grossly normal, normal ENT inspection, normal pharynx Neck Exam: normal inspection, non-tender, supple, full range of motion Respiratory Exam: normal breath sounds, lungs clear, airway intact, No chest tenderness, No respiratory distress Cardiovascular/Chest Exam: normal peripheral pulses, tachycardia, irregular Abdominal/Gastrointestinal Exam: soft, normal bowel sounds, No tenderness Rectal Exam: not done Extremity Exam: non-tender Neurologic Exam: alert, oriented x 3, cooperative, management department chair II-XII nml as tested, sensation nml Skin Exam: normal color, warm, dry Lymphatic Exam: No adenopathy SpO2 Interpretation: normal O2 Delivery: Room Air - Course Nursing assessment & vital signs reviewed: Yes EKG Interpreted by Me: RATE (114), A-fib, NORMAL AXIS, NORMAL INTERVALS, NORMAL QRS, Other (PVCs, QTc 498. No acute ischemia on today's twelve-lead EKG.) Ordered Tests: Active Orders 24 hr Category Date Time Status EKG-ER Only STAT Care 04/09/25 11:40 Completed IV Insertion STAT Care 04/09/25 11:40 Active Pulse Oximetry (ED) STAT Care 04/09/25 11:40 Active CHEST 1 VIEW (PORTABLE) Stat Exams 04/09/25 11:43 Completed CBC W DIFF Stat Lab 04/09/25 11:40 Completed CMP Stat Lab 04/09/25 11:52 Completed Lactic Acid Stat Lab 04/09/25 12:15 Completed MAGNESIUM Stat Lab 04/09/25 11:52 Completed Manual Differential NC Stat Lab 04/09/25 11:40 Completed NT PRO BNPII Stat Lab 04/09/25 11:52 Completed PROTIME WITH INR Stat Lab 04/09/25 11:52 Completed PTT Stat Lab 04/09/25 11:52 Completed TROPONIN Q4H Lab 04/09/25 11:52 Completed TROPONIN Q4H Lab 04/09/25 13:59 Completed TROPONIN Q4H Lab 04/09/25 19:45 Ordered Respiratory Therapy Assessment DAILY RT 04/09/25 12:46 Completed Medication Summary Discontinued Medications Generic Name Dose Route Start Last Admin Trade Name Freq PRN Reason Stop Dose Admin Albuterol/Ipratropium Confirm 04/09/25 12:34 Ipratropium/Albuterol Sulfate 3 Ml Ampul.Neb Administered 04/09/25 12:35 Dose 3 ml IH .STK-MED ONE Albuterol/Ipratropium 3 ml 04/09/25 12:45 04/09/25 12:48 Ipratropium/Albuterol Sulfate 3 Ml Ampul.Neb IH 04/09/25 12:46 3 ml STAT ONE Administration Furosemide 40 mg 04/09/25 12:43 04/09/25 13:02 Furosemide 40 Mg/4 Ml Vial IV 04/09/25 12:44 40 mg STAT ONE Administration Furosemide Confirm 04/09/25 12:55 Furosemide 40 Mg/4 Ml Vial Administered 04/09/25 12:56 Dose 40 mg .ROUTE .STK-MED ONE Metoclopramide HCl 5 mg 04/09/25 12:42 04/09/25 13:00 Metoclopramide Hcl 10 Mg/2 Ml Vial IV 04/09/25 12:43 5 mg STAT ONE Administration Metoclopramide HCl Confirm 04/09/25 12:56 Metoclopramide Hcl 10 Mg/2 Ml Vial Administered 04/09/25 12:57 Dose 10 mg .ROUTE .STK-MED ONE Lab/Rad Data: Laboratory Result Diagrams 04/09/25 11:40 04/09/25 11:52 Laboratory Results 04/09/25 04/09/25 04/09/25 Range/Units 13:59 12:15 12:00 WBC (3.98-10.04) x10^3/uL RBC (3.93-5.22) x10^6/uL Hgb (11.2-15.7) g/dL Hct (34.1-44.9) % MCV (79.4-94.8) fL MCH (25.6-32.2) pg MCHC (32.2-35.5) g/dL RDW (11.7-14.4) % Plt Count (182-369) x10^3/uL MPV (9.4-12.3) fL Segmented Neutrophils (34.0-71.1) % Lymphocytes (Manual) (19.3-51.7) % Monocytes (Manual) (4.7-12.5) % Eosinophils (Manual) (0.7-5.8) % Atypical Lymphocytes % Platelet Estimate (NORMAL) RBC Morphology PT (9.4-12.5) SECONDS INR (0.8-3.0) APTT (25.1-36.5) SECONDS Sodium (135-145) mmol/L Potassium (3.5-5.1) mmol/L Chloride (98-107) mmol/L Carbon Dioxide (22-30) mmol/L Anion Gap (5-15) MEQ/L BUN (7-17) mg/dL Creatinine (0.52-1.04) mg/dL Estimated GFR ML/MIN Glucose (74-106) mg/dL Lactic Acid 2.3 H (0.4-2.0) Calcium (8.4-10.2) mg/dL Magnesium (1.6-2.3) mg/dL Total Bilirubin (0.2-1.3) mg/dL AST (14-36) U/L ALT (0-35) U/L Alkaline Phosphatase (38-126) U/L Troponin I < 0.012 (0.000-0.033) ng/mL NT-Pro-B Natriuret Pep (<300) pg/mL Serum Total Protein (6.3-8.2) g/dL Albumin (3.5-5.0) g/dL Influenza Type A Ag NEGATIVE (NEGATIVE) Influenza Type B Ag NEGATIVE (NEGATIVE) RSV (PCR) NEGATIVE (NEGATIVE) SARS-CoV-2 (PCR) NEGATIVE (NEGATIVE) 04/09/25 04/09/25 04/09/25 Range/Units 11:52 11:52 11:52 WBC (3.98-10.04) x10^3/uL RBC (3.93-5.22) x10^6/uL Hgb (11.2-15.7) g/dL Hct (34.1-44.9) % MCV (79.4-94.8) fL MCH (25.6-32.2) pg MCHC (32.2-35.5) g/dL RDW (11.7-14.4) % Plt Count (182-369) x10^3/uL MPV (9.4-12.3) fL Segmented Neutrophils (34.0-71.1) % Lymphocytes (Manual) (19.3-51.7) % Monocytes (Manual) (4.7-12.5) % Eosinophils (Manual) (0.7-5.8) % Atypical Lymphocytes % Platelet Estimate (NORMAL) RBC Morphology PT 10.1 (9.4-12.5) SECONDS INR 0.92 (0.8-3.0) APTT 25.3 (25.1-36.5) SECONDS Sodium 137 (135-145) mmol/L Potassium 5.1 (3.5-5.1) mmol/L Chloride 104 (98-107) mmol/L Carbon Dioxide 23 (22-30) mmol/L Anion Gap 15.2 H (5-15) MEQ/L BUN 20 H (7-17) mg/dL Creatinine 0.61 (0.52-1.04) mg/dL Estimated GFR 101.7 ML/MIN Glucose 222 H (74-106) mg/dL Lactic Acid (0.4-2.0) Calcium 9.8 (8.4-10.2) mg/dL Magnesium 1.4 L (1.6-2.3) mg/dL Total Bilirubin 0.20 (0.2-1.3) mg/dL AST 30 (14-36) U/L ALT 29 (0-35) U/L Alkaline Phosphatase 114 (38-126) U/L Troponin I < 0.012 (0.000-0.033) ng/mL NT-Pro-B Natriuret Pep 833 (<300) pg/mL Serum Total Protein 7.3 (6.3-8.2) g/dL Albumin 4.2 (3.5-5.0) g/dL Influenza Type A Ag (NEGATIVE) Influenza Type B Ag (NEGATIVE) RSV (PCR) (NEGATIVE) SARS-CoV-2 (PCR) (NEGATIVE) 04/09/25 Range/Units 11:40 WBC 11.2 H (3.98-10.04) x10^3/uL RBC 5.42 H (3.93-5.22) x10^6/uL Hgb 14.9 (11.2-15.7) g/dL Hct 45.2 H (34.1-44.9) % MCV 83.4 (79.4-94.8) fL MCH 27.5 (25.6-32.2) pg MCHC 33.0 (32.2-35.5) g/dL RDW 14.3 (11.7-14.4) % Plt Count 251 (182-369) x10^3/uL MPV 11.1 (9.4-12.3) fL Segmented Neutrophils 46 (34.0-71.1) % Lymphocytes (Manual) 41 (19.3-51.7) % Monocytes (Manual) 9 (4.7-12.5) % Eosinophils (Manual) 1 (0.7-5.8) % Atypical Lymphocytes 3 % Platelet Estimate NORMAL (NORMAL) RBC Morphology NORMAL PT (9.4-12.5) SECONDS INR (0.8-3.0) APTT (25.1-36.5) SECONDS Sodium (135-145) mmol/L Potassium (3.5-5.1) mmol/L Chloride (98-107) mmol/L Carbon Dioxide (22-30) mmol/L Anion Gap (5-15) MEQ/L BUN (7-17) mg/dL Creatinine (0.52-1.04) mg/dL Estimated GFR ML/MIN Glucose (74-106) mg/dL Lactic Acid (0.4-2.0) Calcium (8.4-10.2) mg/dL Magnesium (1.6-2.3) mg/dL Total Bilirubin (0.2-1.3) mg/dL AST (14-36) U/L ALT (0-35) U/L Alkaline Phosphatase (38-126) U/L Troponin I (0.000-0.033) ng/mL NT-Pro-B Natriuret Pep (<300) pg/mL Serum Total Protein (6.3-8.2) g/dL Albumin (3.5-5.0) g/dL Influenza Type A Ag (NEGATIVE) Influenza Type B Ag (NEGATIVE) RSV (PCR) (NEGATIVE) SARS-CoV-2 (PCR) (NEGATIVE) - Progress Progress: improved, re-examined Air Movement: good Progress Note: 04/09/25 12:31 My medical decision making and the assignment of moderate to high complexity of this patient's medical issue today is based on review of the patient's past medical history, reviewed patient's medication list, reviewed patient drug allergy list, history of present illness and physical findings on examination. The workup in this patient includes placement of intravenous line, CBC, CMP, BNP, troponin level, twelve-lead EKG, viral swabs, chest x-ray. Will have respiratory therapy evaluate her and provide her with a nebulizer treatment if indicated. We will also order magnesium level. Differential diagnosis includes but is not limited to COPD exacerbation, CHF exacerbation, myocardial infarction, arrhythmia, electrolyte abnormalities, upper respiratory infection/pneumonia, viral illness I interpreted the patient's preliminary chest x-ray report. I see no acute cardiopulmonary process. The final chest x-ray report was interpreted by the radiologist and I reviewed the impression. The pression states compared to similar study dated 02/23/2025, there is minimal left midlung subsegmental atelectasis. The bony thorax shows osteopenia and mild degenerative changes. No new or acute findings. 04/09/25 14:31 I interpreted the patient's laboratory data results. Based on laboratory data results the patient might have mild CHF exacerbation. The repeat troponin level is also normal. Blood Culture(s) Obtained: No Antibiotics given: No Counseled pt/family regarding: lab results, diagnosis, rad results Medical Desision Making - Independent Historian Additional History obtained from: [employer] Consultant/EMT - Diagnostic Testing Diagnostic test were ordered, analyzed, and reviewed by me: Yes Radiological Interpretation: Interpreted by me, Reviewed by me, Teleradiologist Report - Risk of complications Low Risk: Low risk of morbidity from additional dx testing or treatment - Departure Departure Disposition: Home Clinical Impression: CHF exacerbation Condition: Stable Critical Care Time: No Referrals: INDY CRANE MD [Primary Care Provider, [facility]] - Follow up/PCP as directed Instructions: Heart Failure Additional Instructions: Take another dose of your Lasix/furosemide at 7 PM this evening. On 04/10/2025, take a morning and evening dose of your Lasix/furosemide. On 04/11/2025, resume your Lasix/furosemide dosing. Call your primary care provider today, 04/09/2025, to make arrangements for an appointment to be seen next week.
[2025-04-09 11:44] VITALS: TEMP 98.4
--- NOTE | 2025-04-09 12:11 | XRAY ---
Indication: Short of breath. Comparison: February 23, 2025 Portable chest again demonstrates minimal left mid lung subsegmental atelectasis/scarring. Remaining heart and lungs unremarkable again with incidental CABG. Bony thorax intact with osteopenia and mild degenerative changes. No new/acute findings.
[2025-04-09 12:31] LABS: INR 0.92 (0.8-3.0); PROTIME 10.1 SECONDS (9.4-12.5); PTT 25.3 SECONDS (25.1-36.5)
[2025-04-09] MEDS ORDERED: DUONEB 0.5-3 MG/3 ml Neb IH ONE (12:34)
[2025-04-09 12:39] LABS: Calcium 9.8 mg/dL (8.4-10.2); Carbon Dioxide 23.0 mmol/L (22-30); Creatinine 1 0.61 mg/dL (0.52-1.04); EST GLOMERULAR FILTRATION RATE 101.7 ML/MIN; Glucose 222.0 mg/dL (74-106); NT PRO BNPII 833.0 pg/mL (<300); Potassium 5.1 mmol/L (3.5-5.1); SGOT/AST 30.0 U/L (14-36); SGPT/ALT 29.0 U/L (0-35); Total Protein 7.3 g/dL (6.3-8.2)
[2025-04-09 12:42] LABS: Hematocrit 45.2 % (34.1-44.9); Hemoglobin 14.9 g/dL (11.2-15.7); Mean Corpuscular Hemoglobin 27.5 pg (25.6-32.2); Mean Corpuscular Hgb Concent. 33.0 g/dL (32.2-35.5); Platelet Count 251 x10^3/uL (182-369); Red Blood Count 5.42 x10^6/uL (3.93-5.22); White Blood Count 11.2 x10^3/uL (3.98-10.04)
[2025-04-09] MEDS: DUONEB 0.5-3 MG/3 ml Neb IH ONE (12:48)
[2025-04-09] MEDS ORDERED: Lasix 40 MG/4 ML ONE (12:55)
[2025-04-09 12:56] LABS: INFLUENZA A NEGATIVE (NEGATIVE); INFLUENZA B NEGATIVE (NEGATIVE); RESPIRATORY SYNCTIAL VIRUS NEGATIVE (NEGATIVE); SARS-CoV-2 Xpert Express NEGATIVE (NEGATIVE)
[2025-04-09] MEDS ORDERED: Reglan 10 MG/2 ML ONE (12:56)
[2025-04-09] MEDS: Reglan 10 MG/2 ML IV ONE (13:00)
[2025-04-09] MEDS: Lasix 40 MG/4 ML IV ONE (13:02)
[2025-04-09 14:05] LABS: Total Cells Counted 100
[2025-04-09 14:24] VITALS: O2SAT 98
[2025-04-09 15:08] VITALS: BP 131/84; PULSE 112; RESP 17
== END 2025-04-09 15:00 | disposition home or self-care (01) ==
LOC: ED 11:30
DX: I11.0 Hypertensive heart disease with heart failure (principal); I50.9 Heart failure, unspecified; R06.02 Shortness of breath; R07.9 Chest pain, unspecified; E11.9 Type 2 diabetes mellitus without complications; Z79.01 Long term (current) use of anticoagulants; Z79.4 Long term (current) use of insulin; Z79.84 Long term (current) use of oral hypoglycemic drugs; Z79.899 Other long term (current) drug therapy

== ENCOUNTER 2025-04-13 15:09 | Emergency (ER) | payer OTHER ==
--- NOTE | 2025-04-13 15:16 | ERPHSYRPT ---
- History of Present Illness Time Seen by Provider: 04/13/25 15:15 Source: patient, EMS, old records Exam Limitations: clinical condition Physician History: This is a morbidly obese 59-year-old white female patient of Dr. Crane who arrives to the emergency department by the paramedics secondary to shortness of breath. Patient states that she was seen by Dr. Crane earlier this morning. Patient ordinarily wears oxygen just at night. However she suddenly became short of breath with prior to arrival. Patient has a history of atrial fibrillation on Eliquis, hyperlipidemia, osteoporosis, hypertension, gastroesophageal reflux disease, c/o BD, asthma, insulin-dependent diabetes, coronary disease and CVA. On 04/09/2025, patient had stents And was found to have CHF exacerbation with a BNP of 833. The level was normal at that visit. Patient does not have chest pain at this time. Her oxygen saturation level on 2 L oxygen via nasal cannula, on arrival to the emergency department, is 95% Timing/Duration: today Severity of Dyspnea-Max: mild (Moderate) Severity of Dyspnea-Current: mild (To moderate) Possible Cause: frequent episodes, chronic episodes Modifying Factors: Improves With: activity Associated Symptoms: anxiety, No cough, No chest pain/discomfort, No wheezing Allergies/Adverse Reactions: acetaminophen [From Percocet] Allergy (Intermediate, Verified 04/13/25 15:18) Blisters oxycodone [From Percocet] Allergy (Intermediate, Verified 04/13/25 15:18) Blisters sulfamethoxazole [From Bactrim] Allergy (Intermediate, Verified 04/13/25 15:18) Swelling trimethoprim [From Bactrim] Allergy (Intermediate, Verified 04/13/25 15:18) Swelling Sulfa (Sulfonamide Antibiotics) Allergy (Verified 04/13/25 15:18) Hives nuclear dye Adverse Reaction (Intermediate, Uncoded 04/13/25 15:18) Nausea and Vomiting Home Medications: Alendronate Sodium 70 mg [Fosamax 70 MG] 70 mg PO WEEKLY 10/23/24 [History] Apixaban [Eliquis] 5 mg PO BID 10/23/24 [History] Atorvastatin Calcium 80 mg PO QHS 10/23/24 [History] Ezetimibe 10 mg [Zetia 10 MG] 10 mg PO DAILY 10/23/24 [History] Furosemide 40 mg PO DAILY 10/23/24 [History] PANTOPRAZOLE 40 mg Tablet [Protonix 40MG Tablet] 40 mg PO DAILY 10/23/24 [History] Metoprolol Succinate 25 mg Xl* [Toprol-Xl 25MG Tablets] 12.5 mg PO BID 11/20/24 [History] Albuterol Sulfate 2.5 mg IH TID PRN 12/23/24 [History] Insulin Glargine [Lantus Insulin] 120 unit SQ BID 12/23/24 [History] Insulin Lispro [Admelog Solostar] 30 unit SQ AC 12/23/24 [History] Nitroglycerin 0.4 mg Tablet [Nitrostat 0.4 MG Tablet] 0.4 mg SL Q5MIN PRN MR X 3 PRN 12/23/24 [History] Aspirin EC 81 mg [Ecotrin 81 mg] 81 mg PO DAILY 12/24/24 [History] Cholecalciferol (Vitamin D3) [Vitamin D3] 125 mcg PO DAILY 12/24/24 [History] Diphenhydramine HCl 25 mg [Benadryl 25 mg Capsule] 12.5 mg PO QHS 12/24/24 [History] Gabapentin [Neurontin ] 300 mg PO TID 12/24/24 [History] Sacubitril/Valsartan [Entresto 24 mg-26 mg Tablet] 1 tab PO BID 01/04/25 [History] Spironolactone 12.5 mg PO DAILY 01/04/25 [History] Albuterol 2.5 mg/3 ml Neb [Proventil 2.5 mg/3 ml Neb] 1 vial NEBULIZE BID 01/21/25 [History] Budesonide/Formoterol Fumarate [Symbicort 160-4.5 Mcg Inhaler] 2 puff PO BID 01/21/25 [History] Empagliflozin [Jardiance] 25 mg PO DAILY 01/21/25 [History] Isosorbide Mononitrate [Isosorbide Mononitrate ER] 30 mg PO DAILY 01/21/25 [History] Magnesium Oxide 400 mg [Mag-Ox 400] 400 mg PO DAILY 01/21/25 [History] Montelukast Sodium 10 mg [Singulair 10 MG] 10 mg PO DAILY 01/21/25 [History] Hx Tetanus, Diphtheria Vaccination/Date Given: Yes Hx Influenza Vaccination/Date Given: Yes Hx Pneumococcal Vaccination/Date Given: Yes Travel Risk - International Travel Have you traveled outside of the country in past 3 weeks: No - Emerging Infectious Disease Are you exhibiting symptoms associated with any current EIDs: No Symptoms: Shortness of Breath Comment: chest x-ray and flu,COVID, RSV swab complete while in the ER - Review of Systems Constitutional: No Symptoms Eyes: No Symptoms Ears, Nose, & Throat: No Symptoms Respiratory: Dyspnea, Dyspnea on Exertion (PIERCE), No Cough, No Wheezing Cardiac: No Symptoms, No Chest Pain Abdominal/Gastrointestinal: No Symptoms Genitourinary Symptoms: No Symptoms Musculoskeletal: No Symptoms Skin: No Symptoms Neurological: No Symptoms Psychological: No Symptoms Endocrine: No Symptoms Hematologic/Lymphatic: No Symptoms Immunological/Allergic: No Symptoms All Other Systems: Reviewed and Negative - Past Medical History Pertinent Past Medical History: Yes Neurological History: Migraines ENT History: Cataracts Cardiac History: No Pertinent History Respiratory History: No Pertinent History Endocrine Medical History: Diabetes Type II Musculoskeletal History: Arthritis GI Medical History: No Pertinent History History: No Pertinent History Psycho-Social History: Anxiety Female Reproductive Disorders: No Pertinent History Other Medical History: Retina debra - Past Surgical History Past Surgical History: Yes Neuro Surgical History: No Pertinent History Cardiac: Cardiac Catheterization Respiratory: No Pertinent History Gastrointestinal: Cholecystectomy Genitourinary: No Pertinent History Musculoskeletal: Orthopedic Surgery Female Surgical History: Hysterectomy, Tubal Ligation Other Surgical History: bilateral knee surgeries times 3 Significant Family History: diabetes - Social History Smoking Status: Never smoker Exposure to second hand smoke: Yes - Social Determinants of Health In the past 12 months,have you had to go without utilities?: No Transportation Issues: No Have you or anyone in your house had to go w/o enough food: No - Nursing Vital Signs Nursing Vital Signs: Initial Vital Signs Temperature 97 F 04/13/25 15:09 Pulse Rate 88 04/13/25 15:09 Respiratory Rate 22 04/13/25 15:09 Blood Pressure 98/50 04/13/25 15:09 O2 Sat by Pulse Oximetry 96 04/13/25 15:09 Pain Scale Pain Intensity 4 - Physical Exam General Appearance: mild distress, alert, anxiety, obese Eye Exam: PERRL/EOMI, eyes nml inspection Ears, Nose, Throat Exam: hearing grossly normal, normal ENT inspection, normal pharynx Neck Exam: normal inspection, non-tender, supple, full range of motion Respiratory Exam: normal breath sounds, lungs clear, airway intact, No chest tenderness, No respiratory distress Cardiovascular/Chest Exam: normal heart sounds, regular rate/rhythm, normal peripheral pulses Abdominal/Gastrointestinal Exam: soft, normal bowel sounds, No tenderness Rectal Exam: not done Extremity Exam: non-tender, normal range of motion, normal inspection, no calf tenderness, pelvis stable, pedal edema (Trace bilateral feet and ankles) Neurologic Exam: alert, oriented x 3, cooperative, cook pickled meat II-XII nml as tested, sensation nml Skin Exam: normal color, warm, dry Lymphatic Exam: No adenopathy SpO2 Interpretation: normal O2 Delivery: Room Air - Course Nursing assessment & vital signs reviewed: Yes Ordered Tests: Active Orders 24 hr Category Date Time Status Clinical Rehabilitation Coordinator STAT Care 04/13/25 15:16 Active EKG-ER Only STAT Care 04/13/25 15:16 Active IV Insertion STAT Care 04/13/25 15:16 Active CHEST 1 VIEW (PORTABLE) Stat Exams 04/13/25 15:16 Completed BLOOD CULTURE Stat Lab 04/13/25 15:38 Received CBC W DIFF Stat Lab 04/13/25 15:40 Completed CMP Stat Lab 04/13/25 15:40 Completed NT PRO BNPII Stat Lab 04/13/25 15:40 Completed TROPONIN Q4H Lab 04/13/25 15:40 Completed TROPONIN Q4H Lab 04/13/25 19:30 Ordered TROPONIN Q4H Lab 04/13/25 23:30 Ordered Lab/Rad Data: Laboratory Result Diagrams 04/13/25 15:40 04/13/25 15:40 Laboratory Results 04/13/25 04/13/25 04/13/25 Range/Units 15:42 15:40 15:40 WBC (3.98-10.04) x10^3/uL RBC (3.93-5.22) x10^6/uL Hgb (11.2-15.7) g/dL Hct (34.1-44.9) % MCV (79.4-94.8) fL MCH (25.6-32.2) pg MCHC (32.2-35.5) g/dL RDW (11.7-14.4) % Plt Count (182-369) x10^3/uL MPV (9.4-12.3) fL Gran % (34.0-71.1) % Immature Gran % (Auto) (0.001-0.429) % Nucleat RBC Rel Count (0.00-0.2) % Eos # (Auto) (0.04-0.36) x10^3/uL Immature Gran # (Auto) (0.001-0.031) x10^3u/L Absolute Lymphs (auto) (1.18-3.74) x10^3/uL Absolute Monos (auto) (0.24-0.86) x10^3/uL Absolute Nucleated RBC (0.00-0.012) x10^3u/L Lymphocytes % (19.3-51.7) % Monocytes % (4.7-12.5) % Eosinophils % (0.7-5.8) % Basophils % (0.1-1.2) % Absolute Granulocytes (1.56-6.13) x10^3/uL Basophils # (0.01-0.08) x10^3/uL Sodium 136 (135-145) mmol/L Potassium 4.8 (3.5-5.1) mmol/L Chloride 103 (98-107) mmol/L Carbon Dioxide 20 L (22-30) mmol/L Anion Gap 17.4 H (5-15) MEQ/L BUN 32 H (7-17) mg/dL Creatinine 1.07 H (0.52-1.04) mg/dL Estimated GFR 59.1 ML/MIN Glucose 351 H (74-106) mg/dL Calcium 9.5 (8.4-10.2) mg/dL Total Bilirubin 0.30 (0.2-1.3) mg/dL AST 28 (14-36) U/L ALT 25 (0-35) U/L Alkaline Phosphatase 112 (38-126) U/L Troponin I < 0.012 (0.000-0.033) ng/mL NT-Pro-B Natriuret Pep 156 (<300) pg/mL Serum Total Protein 6.7 (6.3-8.2) g/dL Albumin 4.0 (3.5-5.0) g/dL Influenza Type A Ag NEGATIVE (NEGATIVE) Influenza Type B Ag NEGATIVE (NEGATIVE) RSV (PCR) NEGATIVE (NEGATIVE) SARS-CoV-2 (PCR) NEGATIVE (NEGATIVE) Slides for Path Review 04/13/25 Range/Units 15:40 WBC 14.5 H (3.98-10.04) x10^3/uL RBC 5.15 (3.93-5.22) x10^6/uL Hgb 14.3 (11.2-15.7) g/dL Hct 43.9 (34.1-44.9) % MCV 85.2 (79.4-94.8) fL MCH 27.8 (25.6-32.2) pg MCHC 32.6 (32.2-35.5) g/dL RDW 14.7 H (11.7-14.4) % Plt Count 244 (182-369) x10^3/uL MPV 11.5 (9.4-12.3) fL Gran % 51.4 (34.0-71.1) % Immature Gran % (Auto) 0.5 H (0.001-0.429) % Nucleat RBC Rel Count 0.0 (0.00-0.2) % Eos # (Auto) 0.04 (0.04-0.36) x10^3/uL Immature Gran # (Auto) 0.07 H (0.001-0.031) x10^3u/L Absolute Lymphs (auto) 5.87 H (1.18-3.74) x10^3/uL Absolute Monos (auto) 1.00 H (0.24-0.86) x10^3/uL Absolute Nucleated RBC 0.00 (0.00-0.012) x10^3u/L Lymphocytes % 40.4 (19.3-51.7) % Monocytes % 6.9 (4.7-12.5) % Eosinophils % 0.3 L (0.7-5.8) % Basophils % 0.5 (0.1-1.2) % Absolute Granulocytes 7.47 H (1.56-6.13) x10^3/uL Basophils # 0.07 (0.01-0.08) x10^3/uL Sodium (135-145) mmol/L Potassium (3.5-5.1) mmol/L Chloride (98-107) mmol/L Carbon Dioxide (22-30) mmol/L Anion Gap (5-15) MEQ/L BUN (7-17) mg/dL Creatinine (0.52-1.04) mg/dL Estimated GFR ML/MIN Glucose (74-106) mg/dL Calcium (8.4-10.2) mg/dL Total Bilirubin (0.2-1.3) mg/dL AST (14-36) U/L ALT (0-35) U/L Alkaline Phosphatase (38-126) U/L Troponin I (0.000-0.033) ng/mL NT-Pro-B Natriuret Pep (<300) pg/mL Serum Total Protein (6.3-8.2) g/dL Albumin (3.5-5.0) g/dL Influenza Type A Ag (NEGATIVE) Influenza Type B Ag (NEGATIVE) RSV (PCR) (NEGATIVE) SARS-CoV-2 (PCR) (NEGATIVE) Slides for Path Review YES - Progress Progress: improved, re-examined Air Movement: good Progress Note: 04/13/25 15:35 My medical decision making and the assignment of at least moderate complexity possible high complexity is based on review of the patient's past medical history, review of the patient's medication list, reviewed patient drug allergy list, history of present symptoms, findings on examination. The workup in this patient includes placement of intravenous line, chest x-ray, CBC, CMP, troponin level, twelve-lead EKG, BNP. I will not order D-dimer level as the patient is on Eliquis. I will not repeat the viral studies as they were performed 4 days ago and were all negative Differential diagnosis includes but is not limited to myocardial infarction, CHF exacerbation, COPD exacerbation, anxiety about health, arrhythmia, electrolyte abnormality 04/13/25 15:36 04/13/25 16:34 I interpreted the patient's laboratory data results. Based on the laboratory data results, the patient has a leukocytosis but no other acute, emergent medical issue. Since this is the patient's second visit to the emergency department within the last for 5 days and the white count increased from 12.5 up to 14.6 but no other significant findings, we will place this patient on intravenous followed by outpatient antibiotic therapy. In fact, she has now had 3 normal troponin levels and 4 days and her BNP has significantly improved. I interpreted the patient's preliminary chest x-ray report and see no acute process. The final chest x-ray report today was by the radiologist. His impression states less left midlung subsegmental scarring. No new or acute findings. There is no evidence for a infiltrate. 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 - Diagnostic Testing Diagnostic test were ordered, analyzed, and reviewed by me: Yes Radiological Interpretation: Interpreted by me, Reviewed by me, Teleradiologist Report - Risk of complications Low Risk: Low risk of morbidity from additional dx testing or treatment The pt has a mod risk of morbidity or mortality based on: Need for prescription drug management - Departure Departure Disposition: Home Clinical Impression: Leukocytosis, Shortness of breath Condition: Stable Critical Care Time: No Referrals: INDY CRANE MD [Primary Care Provider, [facility]] - Follow up/PCP as directed Additional Instructions: Continue your medications as prescribed. Take your new antibiotic prescriptions as prescribed. If you need to use your oxygen during the day as well as night, go ahead and use the same liters of oxygen via nasal cannula. Call Dr. Crane's office tomorrow, 04/14/2025, to make a follow-up appointment. Prescriptions: Cefdinir 300 mg PO BID #14 cap
[2025-04-13 15:27] VITALS: TEMP 97
[2025-04-13 15:45] LABS: BASOPHIL % 0.5 % (0.1-1.2); Basophil (Absolute #) 0.07 x10^3/uL (0.01-0.08); Eosinophil (Absolute #) 0.04 x10^3/uL (0.04-0.36); Hematocrit 43.9 % (34.1-44.9); Hemoglobin 14.3 g/dL (11.2-15.7); IMMATURE GRAN # 0.07 x10^3u/L (0.001-0.031); IMMATURE GRAN % 0.5 % (0.001-0.429); Lymphocyte (Absolute #) 5.87 x10^3/uL (1.18-3.74); Mean Corpuscular Hemoglobin 27.8 pg (25.6-32.2); Mean Corpuscular Hgb Concent. 32.6 g/dL (32.2-35.5); Monocyte (Absolute #) 1.00 x10^3/uL (0.24-0.86); NUCLEATED RBC # 0.00 x10^3u/L (0.00-0.012); NUCLEATED RBC % 0.0 % (0.00-0.2); Platelet Count 244 x10^3/uL (182-369); Red Blood Count 5.15 x10^6/uL (3.93-5.22); White Blood Count 14.5 x10^3/uL (3.98-10.04)
[2025-04-13 16:08] LABS: Calcium 9.5 mg/dL (8.4-10.2); Carbon Dioxide 20.0 mmol/L (22-30); Creatinine 1 1.07 mg/dL (0.52-1.04); EST GLOMERULAR FILTRATION RATE 59.1 ML/MIN; Glucose 351.0 mg/dL (74-106); NT PRO BNPII 156.0 pg/mL (<300); Potassium 4.8 mmol/L (3.5-5.1); SGOT/AST 28.0 U/L (14-36); SGPT/ALT 25.0 U/L (0-35); Total Protein 6.7 g/dL (6.3-8.2)
[2025-04-13 16:16] LABS: Slide Review 1 YES
[2025-04-13 16:21] LABS: INFLUENZA A NEGATIVE (NEGATIVE); INFLUENZA B NEGATIVE (NEGATIVE); RESPIRATORY SYNCTIAL VIRUS NEGATIVE (NEGATIVE); SARS-CoV-2 Xpert Express NEGATIVE (NEGATIVE)
--- NOTE | 2025-04-13 16:26 | XRAY ---
Indication: Short of breath. Comparison: April 09, 2025 Portable chest again demonstrates left midlung subsegmental is/scarring, less than before. Remaining heart and lungs unremarkable again with incidental CABG. Bony thorax intact again with osteopenia and degenerative changes. No new/acute findings.
[2025-04-13] MEDS ORDERED: ROCEPHIN 1 GM / 100 ML NaCl 1 GM/100 ML IVPB IV ONE (16:49)
[2025-04-13] MEDS: ROCEPHIN 1 GM / 100 ML NaCl 1 GM/100 ML IVPB IV ONE (16:50)
[2025-04-13 17:12] VITALS: RESP 20
[2025-04-13 17:46] VITALS: BP 108/83; PULSE 74; O2SAT 96
== END 2025-04-13 17:46 | disposition home or self-care (01) ==
LOC: ED 15:09
DX: R06.02 Shortness of breath (principal); D72.829 Elevated white blood cell count, unspecified; E11.9 Type 2 diabetes mellitus without complications; I11.0 Hypertensive heart disease with heart failure; I50.9 Heart failure, unspecified; Z79.01 Long term (current) use of anticoagulants; Z79.4 Long term (current) use of insulin; Z79.84 Long term (current) use of oral hypoglycemic drugs; Z79.899 Other long term (current) drug therapy

== ENCOUNTER 2025-05-07 15:44 | Emergency (ER) | payer OTHER ==
--- NOTE | 2025-05-07 15:50 | ERPHSYRPT ---
- History of Present Illness Time Seen by Provider: 05/07/25 15:50 Source: patient Exam Limitations: no limitations Physician History: This is a morbidly obese white female patient who arrives by private vehicle on her own and is a patient of Dr. Crane with a complaint of leg swelling for several months intermittently, shortness of breath for several months intermittently and chest pain today that she describes as substernal central like an ache without radiation. Patient has a history of CHF, hyperlipidemia, gastroesophageal reflux disease, hypertension, insulin-dependent diabetes, osteoporosis and COPD. Patient is on Eliquis I reviewed past labs and this patient. The all the troponin levels listed on this patient obtained in our hospital are normal. In the last 3 months 3 troponin levels are less than 0.012. All BNP levels in the year 2024 are less than or equal to 833. The GFR levels were reviewed in this patient. The lowest recorded is on 04/13/2025 and it was 59.1. In the last 2 months prior to that level, all were greater than 87. Method of Injury: other (No injury but her concern was primarily of the leg swelling) Occurred: other (Chronic intermittent) Severity of Pain-Max: none Severity of Pain-Current: none Lower Extremities Pain: foot: bilateral (Bilateral feet and ankle swelling), ankle: bilateral (Bilateral feet and ankle swelling) Modifying Factors: Improves With: nothing Associated Symptoms: none Allergies/Adverse Reactions: acetaminophen [From Percocet] Allergy (Intermediate, Verified 05/07/25 16:08) Blisters oxycodone [From Percocet] Allergy (Intermediate, Verified 05/07/25 16:08) Blisters sulfamethoxazole [From Bactrim] Allergy (Intermediate, Verified 05/07/25 16:08) Swelling trimethoprim [From Bactrim] Allergy (Intermediate, Verified 05/07/25 16:08) Swelling Sulfa (Sulfonamide Antibiotics) Allergy (Verified 05/07/25 16:08) Hives nuclear dye Adverse Reaction (Intermediate, Uncoded 05/07/25 16:08) Nausea and Vomiting Home Medications: Alendronate Sodium 70 mg [Fosamax 70 MG] 70 mg PO WEEKLY 10/23/24 [History] Apixaban [Eliquis] 5 mg PO BID 10/23/24 [History] Atorvastatin Calcium 80 mg PO QHS 10/23/24 [History] Ezetimibe 10 mg [Zetia 10 MG] 10 mg PO DAILY 10/23/24 [History] Furosemide 40 mg PO DAILY 10/23/24 [History] PANTOPRAZOLE 40 mg Tablet [Protonix 40MG Tablet] 40 mg PO DAILY 10/23/24 [History] Metoprolol Succinate 25 mg Xl* [Toprol-Xl 25MG Tablets] 12.5 mg PO BID 11/20/24 [History] Albuterol Sulfate 2.5 mg IH TID PRN 12/23/24 [History] Insulin Glargine [Lantus Insulin] 120 unit SQ BID 12/23/24 [History] Insulin Lispro [Admelog Solostar] 30 unit SQ AC 12/23/24 [History] Nitroglycerin 0.4 mg Tablet [Nitrostat 0.4 MG Tablet] 0.4 mg SL Q5MIN PRN MR X 3 PRN 12/23/24 [History] Aspirin EC 81 mg [Ecotrin 81 mg] 81 mg PO DAILY 12/24/24 [History] Cholecalciferol (Vitamin D3) [Vitamin D3] 125 mcg PO DAILY 12/24/24 [History] Diphenhydramine HCl 25 mg [Benadryl 25 mg Capsule] 12.5 mg PO QHS 12/24/24 [History] Gabapentin [Neurontin ] 300 mg PO TID 12/24/24 [History] Sacubitril/Valsartan [Entresto 24 mg-26 mg Tablet] 1 tab PO BID 01/04/25 [History] Spironolactone 12.5 mg PO DAILY 01/04/25 [History] Albuterol 2.5 mg/3 ml Neb [Proventil 2.5 mg/3 ml Neb] 1 vial NEBULIZE BID 01/21/25 [History] Budesonide/Formoterol Fumarate [Symbicort 160-4.5 Mcg Inhaler] 2 puff PO BID 01/21/25 [History] Empagliflozin [Jardiance] 25 mg PO DAILY 01/21/25 [History] Isosorbide Mononitrate [Isosorbide Mononitrate ER] 30 mg PO DAILY 01/21/25 [History] Magnesium Oxide 400 mg [Mag-Ox 400] 400 mg PO DAILY 01/21/25 [History] Montelukast Sodium 10 mg [Singulair 10 MG] 10 mg PO DAILY 01/21/25 [History] Hx Tetanus, Diphtheria Vaccination/Date Given: Yes Hx Influenza Vaccination/Date Given: Yes Hx Pneumococcal Vaccination/Date Given: Yes Travel Risk - International Travel Have you traveled outside of the country in past 3 weeks: No - Emerging Infectious Disease Are you exhibiting symptoms associated with any current EIDs: No Symptoms: Shortness of Breath - Review of Systems Constitutional: Night Sweats Eyes: No Symptoms Ears, Nose, & Throat: No Symptoms Respiratory: Dyspnea (Mild chronic) Cardiac: Chest Pain (Mild substernal central nonradiating ache) Abdominal/Gastrointestinal: No Symptoms Genitourinary Symptoms: No Symptoms Musculoskeletal: No Symptoms Skin: No Symptoms Neurological: No Symptoms Psychological: No Symptoms Endocrine: No Symptoms Hematologic/Lymphatic: No Symptoms Immunological/Allergic: No Symptoms - Past Medical History Pertinent Past Medical History: Yes Neurological History: Migraines ENT History: Cataracts Cardiac History: No Pertinent History Respiratory History: No Pertinent History Endocrine Medical History: Diabetes Type II Musculoskeletal History: Arthritis GI Medical History: No Pertinent History History: No Pertinent History Psycho-Social History: Anxiety Female Reproductive Disorders: No Pertinent History Other Medical History: Retina debra - Past Surgical History Past Surgical History: Yes Neuro Surgical History: No Pertinent History Cardiac: Cardiac Catheterization Respiratory: No Pertinent History Gastrointestinal: Cholecystectomy Genitourinary: No Pertinent History Musculoskeletal: Orthopedic Surgery Female Surgical History: Hysterectomy, Tubal Ligation Other Surgical History: bilateral knee surgeries times 3 Significant Family History: diabetes - Social History Smoking Status: Never smoker Exposure to second hand smoke: Yes - Social Determinants of Health In the past 12 months,have you had to go without utilities?: No Transportation Issues: No Have you or anyone in your house had to go w/o enough food: No - Nursing Vital Signs Nursing Vital Signs: Initial Vital Signs Pulse Rate 66 05/07/25 15:44 Respiratory Rate 20 05/07/25 15:44 Blood Pressure 129/71 05/07/25 15:44 O2 Sat by Pulse Oximetry 97 05/07/25 15:44 Pain Scale Pain Intensity 9 - Physical Exam General Appearance: no apparent distress, alert, anxiety, obese Eyes, Ears, Nose, Throat Exam: normal ENT inspection, moist mucous membranes Neck Exam: normal inspection, non-tender, supple, full range of motion Cardiovascular/Respiratory Exam: chest non-tender, normal breath sounds, regular rate/rhythm, heart sounds normal, no ecchymosis, no JVD, no M/R/G, no respiratory distress Gastrointestinal/Abdominal Exam: non-tender, soft Back Exam: normal inspection, normal range of motion, No CVA tenderness, No vertebral tenderness Hips Exam: bilateral: non-tender, normal inspection, normal range of motion, no evidence of injury Legs Exam: bilateral leg: non-tender, normal inspection, normal range of motion, no evidence of injury Knees Exam: bilateral knee: non-tender, normal inspection, normal range of motion, no evidence of injury Ankle Exam: bilateral ankle: non-tender, normal range of motion, no evidence of injury, swelling Foot Exam: bilateral foot: non-tender, normal range of motion, no evidence of injury, swelling Neuro/Tendon Exam: normal sensation, normal motor functions, normal tendon functions, no evidence tendon injury Mental Status Exam: alert, oriented x 3, cooperative Skin Exam: normal color, warm, dry SpO2 Interpretation: normal O2 Delivery: Room Air - Course Nursing assessment & vital signs reviewed: Yes EKG Interpreted by Me: RATE (65), Sinus Rhythm, NORMAL AXIS, NORMAL INTERVALS, NORMAL QRS, Other (QTc is 455. No acute ischemia on today's twelve-lead EKG. There is resolution of the lateral Q waves on today's twelve-lead EKG when compared to that EKG on 04/14/2025) Ordered Tests: Active Orders 24 hr Category Date Time Status EKG-ER Only STAT Care 05/07/25 16:21 Active EKG-ER Only STAT Care 05/07/25 17:56 Active IV Insertion STAT Care 05/07/25 16:21 Active Pulse Oximetry (ED) STAT Care 05/07/25 16:21 Active CHEST 1 VIEW (PORTABLE) Stat Exams 05/07/25 16:26 Taken CBC W DIFF Stat Lab 05/07/25 16:20 Completed CMP Stat Lab 05/07/25 16:20 Completed Lactic Acid Stat Lab 05/07/25 16:30 Completed MAGNESIUM Stat Lab 05/07/25 16:20 Completed NT PRO BNPII Stat Lab 05/07/25 16:20 Completed PROTIME WITH INR Stat Lab 05/07/25 16:20 Completed TROPONIN Q4H Lab 05/07/25 16:20 Completed TROPONIN Q4H Lab 05/07/25 18:20 Completed TROPONIN Q4H Lab 05/08/25 00:30 Ordered Medication Summary Discontinued Medications Generic Name Dose Route Start Last Admin Trade Name Gonzaloq PRN Reason Stop Dose Admin Aspirin 243 mg 05/07/25 16:21 05/07/25 16:34 Aspirin 81 Mg Tab.Chew PO 05/07/25 16:22 243 mg STAT ONE Administration Aspirin Confirm 05/07/25 16:34 Aspirin 81 Mg Tab.Chew Administered 05/07/25 16:35 Dose 243 mg .ROUTE .STK-MED ONE Morphine Sulfate 2 mg 05/07/25 17:56 05/07/25 18:02 Morphine Sulfate 2 Mg/Ml Inj IV 05/07/25 17:57 2 mg STAT ONE Administration Morphine Sulfate Confirm 05/07/25 18:00 Morphine Sulfate 2 Mg/Ml Inj Administered 05/07/25 18:01 Dose 2 mg .ROUTE .STK-MED ONE Ondansetron HCl 4 mg 05/07/25 17:56 05/07/25 18:03 Ondansetron Hcl 4 Mg/2 Ml Vial IV 05/07/25 17:57 4 mg STAT ONE Administration Ondansetron HCl Confirm 05/07/25 18:00 Ondansetron Hcl 4 Mg/2 Ml Vial Administered 05/07/25 18:01 Dose 4 mg .ROUTE .STK-MED ONE Ondansetron HCl Confirm 05/07/25 18:06 Ondansetron Hcl 4 Mg/2 Ml Vial Administered 05/07/25 18:07 Dose 4 mg .ROUTE .STK-MED ONE Lab/Rad Data: Laboratory Result Diagrams 05/07/25 16:20 05/07/25 16:20 Laboratory Results 05/07/25 05/07/25 05/07/25 Range/Units 18:20 16:30 16:20 WBC (3.98-10.04) x10^3/uL RBC (3.93-5.22) x10^6/uL Hgb (11.2-15.7) g/dL Hct (34.1-44.9) % MCV (79.4-94.8) fL MCH (25.6-32.2) pg MCHC (32.2-35.5) g/dL RDW (11.7-14.4) % Plt Count (182-369) x10^3/uL MPV (9.4-12.3) fL Gran % (34.0-71.1) % Immature Gran % (Auto) (0.001-0.429) % Nucleat RBC Rel Count (0.00-0.2) % Eos # (Auto) (0.04-0.36) x10^3/uL Immature Gran # (Auto) (0.001-0.031) x10^3u/L Absolute Lymphs (auto) (1.18-3.74) x10^3/uL Absolute Monos (auto) (0.24-0.86) x10^3/uL Absolute Nucleated RBC (0.00-0.012) x10^3u/L Lymphocytes % (19.3-51.7) % Monocytes % (4.7-12.5) % Eosinophils % (0.7-5.8) % Basophils % (0.1-1.2) % Absolute Granulocytes (1.56-6.13) x10^3/uL Basophils # (0.01-0.08) x10^3/uL PT (9.4-12.5) SECONDS INR (0.8-3.0) Sodium (135-145) mmol/L Potassium (3.5-5.1) mmol/L Chloride (98-107) mmol/L Carbon Dioxide (22-30) mmol/L Anion Gap (5-15) MEQ/L BUN (7-17) mg/dL Creatinine (0.52-1.04) mg/dL Estimated GFR ML/MIN Glucose (74-106) mg/dL Lactic Acid 1.1 (0.4-2.0) Calcium (8.4-10.2) mg/dL Magnesium (1.6-2.3) mg/dL Total Bilirubin (0.2-1.3) mg/dL AST (14-36) U/L ALT (0-35) U/L Alkaline Phosphatase (38-126) U/L Troponin I < 0.012 < 0.012 (0.000-0.033) ng/mL NT-Pro-B Natriuret Pep (<300) pg/mL Serum Total Protein (6.3-8.2) g/dL Albumin (3.5-5.0) g/dL 05/07/25 05/07/25 05/07/25 Range/Units 16:20 16:20 16:20 WBC 10.6 H (3.98-10.04) x10^3/uL RBC 4.37 (3.93-5.22) x10^6/uL Hgb 12.1 (11.2-15.7) g/dL Hct 38.3 (34.1-44.9) % MCV 87.6 (79.4-94.8) fL MCH 27.7 (25.6-32.2) pg MCHC 31.6 L (32.2-35.5) g/dL RDW 15.1 H (11.7-14.4) % Plt Count 237 (182-369) x10^3/uL MPV 10.9 (9.4-12.3) fL Gran % 49.1 (34.0-71.1) % Immature Gran % (Auto) 0.4 (0.001-0.429) % Nucleat RBC Rel Count 0.0 (0.00-0.2) % Eos # (Auto) 0.10 (0.04-0.36) x10^3/uL Immature Gran # (Auto) 0.04 H (0.001-0.031) x10^3u/L Absolute Lymphs (auto) 4.46 H (1.18-3.74) x10^3/uL Absolute Monos (auto) 0.75 (0.24-0.86) x10^3/uL Absolute Nucleated RBC 0.00 (0.00-0.012) x10^3u/L Lymphocytes % 42.1 (19.3-51.7) % Monocytes % 7.1 (4.7-12.5) % Eosinophils % 0.9 (0.7-5.8) % Basophils % 0.4 (0.1-1.2) % Absolute Granulocytes 5.20 (1.56-6.13) x10^3/uL Basophils # 0.04 (0.01-0.08) x10^3/uL PT 10.9 (9.4-12.5) SECONDS INR 0.97 (0.8-3.0) Sodium 138 (135-145) mmol/L Potassium 5.0 (3.5-5.1) mmol/L Chloride 107 (98-107) mmol/L Carbon Dioxide 24 (22-30) mmol/L Anion Gap 12.5 (5-15) MEQ/L BUN 25 H (7-17) mg/dL Creatinine 0.85 (0.52-1.04) mg/dL Estimated GFR 77.9 ML/MIN Glucose 286 H (74-106) mg/dL Lactic Acid (0.4-2.0) Calcium 8.9 (8.4-10.2) mg/dL Magnesium 1.8 (1.6-2.3) mg/dL Total Bilirubin < 0.10 L (0.2-1.3) mg/dL AST 18 (14-36) U/L ALT 18 (0-35) U/L Alkaline Phosphatase 100 (38-126) U/L Troponin I (0.000-0.033) ng/mL NT-Pro-B Natriuret Pep 499 (<300) pg/mL Serum Total Protein 6.8 (6.3-8.2) g/dL Albumin 3.9 (3.5-5.0) g/dL - Progress Progress: improved, re-examined Progress Note: 05/07/25 16:47 My medical decision making and the assignment of moderate complexity of this patient's medical issue today is reviewed the patient's past medical history, reviewed patient's medication list, reviewed patient drug allergy list, history present illness and physical findings on examination. The workup in this patient includes placement of intravenous line, CBC, CMP, magnesium level, chest x-ray, BNP, troponin level, twelve-lead EKG. Differential diagnosis includes but is not limited to pulmonary infiltrate, CHF exacerbation, COPD exacerbation, myocardial infarction, arrhythmia, electrolyte abnormalities 05/07/25 19:03 I interpreted the patient's laboratory data results. Based on laboratory data results there are no acute, emergent medical issues. I interpreted the patient's second (repeat) twelve-lead EKG that was performed on 05/07/2025 at 1819. Heart rate is 59 bpm the pattern is normal sinus rhythm. There is no evidence of acute infarction. QTc is 457. There is normal axis deviation, normal QRS and normal intervals. I interpreted the repeat troponin level which is normal. 05/07/25 19:04 I interpreted the patient's preliminary chest x-ray report. There is no evidence of any acute cardiopulmonary process. Counseled pt/family regarding: lab results, diagnosis, need for follow-up, rad results Medical Desision Making - Independent Historian Additional History obtained from: Spouse - Diagnostic Testing Radiological Interpretation: Interpreted by me - Risk of complications Low Risk: Low risk of morbidity from additional dx testing or treatment - Departure Departure Disposition: Home Clinical Impression: Leg swelling Condition: Stable Critical Care Time: No Referrals: INDY CRANE MD [Primary Care Provider, [facility]] - Follow up/PCP as directed Additional Instructions: Take all your medications as prescribed. Call your prescribing provider on 05/10/2025 to discuss change in your medication if indicated as well as arranging a follow-up appointment to be seen in the next 5 to 7 days.
[2025-05-07 16:08] VITALS: TEMP 96.8
[2025-05-07] MEDS ORDERED: BABY ASPIRIN 81 MG CHEW ONE (16:34)
[2025-05-07] MEDS: BABY ASPIRIN 81 MG CHEW PO ONE (16:34)
[2025-05-07 16:39] LABS: BASOPHIL % 0.4 % (0.1-1.2); Basophil (Absolute #) 0.04 x10^3/uL (0.01-0.08); Eosinophil (Absolute #) 0.10 x10^3/uL (0.04-0.36); Hematocrit 38.3 % (34.1-44.9); Hemoglobin 12.1 g/dL (11.2-15.7); IMMATURE GRAN # 0.04 x10^3u/L (0.001-0.031); IMMATURE GRAN % 0.4 % (0.001-0.429); Lymphocyte (Absolute #) 4.46 x10^3/uL (1.18-3.74); Mean Corpuscular Hemoglobin 27.7 pg (25.6-32.2); Mean Corpuscular Hgb Concent. 31.6 g/dL (32.2-35.5); Monocyte (Absolute #) 0.75 x10^3/uL (0.24-0.86); NUCLEATED RBC # 0.00 x10^3u/L (0.00-0.012); NUCLEATED RBC % 0.0 % (0.00-0.2); Platelet Count 237 x10^3/uL (182-369); Red Blood Count 4.37 x10^6/uL (3.93-5.22); White Blood Count 10.6 x10^3/uL (3.98-10.04)
[2025-05-07 16:55] LABS: INR 0.97 (0.8-3.0); PROTIME 10.9 SECONDS (9.4-12.5)
[2025-05-07 17:05] LABS: Calcium 8.9 mg/dL (8.4-10.2); Carbon Dioxide 24 mmol/L (22-30); Creatinine 1 0.85 mg/dL (0.52-1.04); EST GLOMERULAR FILTRATION RATE 77.9 ML/MIN; Glucose 286 mg/dL (74-106); NT PRO BNPII 499 pg/mL (<300); Potassium 5.0 mmol/L (3.5-5.1); SGOT/AST 18 U/L (14-36); SGPT/ALT 18 U/L (0-35); Total Protein 6.8 g/dL (6.3-8.2)
[2025-05-07] MEDS ORDERED: Zofran 4 MG/2 ML VIAL ONE ×2 (18:00→18:06)
[2025-05-07] MEDS ORDERED: MORPHINE SULFATE 2 MG INJ ONE (18:00)
[2025-05-07] MEDS: MORPHINE SULFATE 2 MG INJ IV ONE (18:02)
[2025-05-07] MEDS: Zofran 4 MG/2 ML VIAL IV ONE (18:03)
[2025-05-07 19:03] VITALS: BP 103/46; PULSE 60; RESP 22; O2SAT 95
--- NOTE | 2025-05-07 21:57 | XRAY ---
Indication: Short of breath. Chest pain. Comparison: April 13, 2025 Portable chest again demonstrates left mid lung subsegmental atelectasis/scarring. Remaining heart and lungs again unremarkable with incidental CABG. Bony thorax intact again with osteopenia and degenerative changes. No new/acute findings.
== END 2025-05-07 19:27 | disposition home or self-care (01) ==
LOC: ED 15:44
DX: M79.89 Other specified soft tissue disorders (principal); R07.9 Chest pain, unspecified; R06.02 Shortness of breath; I11.0 Hypertensive heart disease with heart failure; I50.9 Heart failure, unspecified; E11.9 Type 2 diabetes mellitus without complications; Z79.01 Long term (current) use of anticoagulants; Z79.4 Long term (current) use of insulin; Z79.84 Long term (current) use of oral hypoglycemic drugs; Z79.899 Other long term (current) drug therapy